=== PATIENT | female | born 1985 | race Hispanic/Latino ===

== ENCOUNTER 2016-10-03 20:43 | Inpatient (IN) | payer OTHER ==
[2016-10-03 20:55] VITALS: BMI 26.6
[2016-10-03] MEDS ORDERED: Sodium Chloride 0.9% 1,000 ML IV STA (21:24)
[2016-10-03 21:42] LABS: ADD MANUAL DIFF? NO
[2016-10-03 21:46] LABS: BASO # 0.01 K/mm3 (0.0-2.0); BASO % 0.1 % (0.0-3.0); EOS % 0.3 % (1.5-5.0); GRAN # 4.53 (1.4-6.5); GRAN % 59.9 % (50.0-68.0); LYMPH # 2.3 (1.2-3.4); LYMPH % 30.6 % (22.0-35.0); MEAN CELL VOLUME 84.7 fL (80.0-105.0); MEAN CORPUSCULAR HEMOGLOBIN 29.2 pg (25.0-35.0); MEAN CORPUSCULAR HGB CONC 34.5 g/dl (31.0-37.0); MEAN PLATELET VOLUME 10.1 fl (7.0-11.0); MONO # 0.7 (0.1-0.6); MONO % 9.1 % (1.0-6.0); PLATELET COUNT 205 10^3/uL (120.0-450.0); RED CELL DISTRIBUTION WIDTH 13.3 % (11.5-14.5); WHITE BLOOD COUNT 7.6 10^3/ul (4.5-11.0)
--- NOTE | 2016-10-03 21:46 | ED PDOC ---
Arrival/HPI - General Historian: Family EM Caveat: Altered Mental Status (confused) - History of Present Illness Time/Duration: 1-3 hours Symptom Onset: Sudden Symptom Course: Unchanged <Patsy Oswald - Last Filed: 10/04/16 01:31> <Senthil Norman - Last Filed: 10/05/16 19:13> - General Chief Complaint: Altered Mental Status Time Seen by Provider: 10/03/16 21:00 - History of Present Illness Narrative History of Present Illness (Text): 10/03/16 21:30 31 year old female with past medical history of depression was brought in to the ED for sudden onset of confusion. History per patient's mother in law, patient visited her this afternoon here at [facility] where she was having an argument with him and all of the sudden patient became confused. Patient was then brought down the [facility] ED for an evaluation. Mother in law reports patient takes multiple medications for her depression and also states that patient has a history of alcohol abuse. Patient was awake and alert, but was not able to answer any questions. Patient's mother Gary was spoken to over the phone reports she takes klonopin at home. Unable to obtain further ROS due to patient' s mental status. (Patsy Oswald) Past Medical History - Provider Review Nursing Documentation Reviewed: Yes - Cardiac Hx Cardiac Disorders: No - Pulmonary Hx Respiratory Disorders: No - Neurological Hx Neurological Disorder: No - HEENT Hx HEENT Disorder: No - Renal Hx Renal Disorder: No - Endocrine/Metabolic Hx Endocrine Disorders: No - Hematological/Oncological Hx Blood Disorders: No - Integumentary Hx Dermatological Disorder: No - Musculoskeletal/Rheumatological Hx Musculoskeletal Disorders: No - Gastrointestinal Hx Gastrointestinal Disorders: No - Genitourinary/Gynecological Hx Genitourinary Disorders: No - Psychiatric Hx Psychophysiologic Disorder: No Hx Substance Use: No - Anesthesia Hx Anesthesia: No <Patsy Oswald - Last Filed: 10/04/16 01:31> Family/Social History - Physician Review Nursing Documentation Reviewed: Yes Family/Social History: No Known Family HX Smoking Status: Never Smoked Hx Alcohol Use: Yes Hx Substance Use: No <Patsy Oswald - Last Filed: 10/04/16 01:31> Allergies/Home Meds <Patsy Oswald - Last Filed: 10/04/16 01:31> <Senthil Norman - Last Filed: 10/05/16 19:13> Allergies/Adverse Reactions: Allergies No Known Allergies Allergy (Verified 10/04/16 12:43) Home Medications: Home Meds Medication Instructions Recorded Confirmed No Known Home Med 10/04/16 10/04/16 Review of Systems - Physician Review All systems were reviewed & negative as marked: Yes - Review of Systems Systems not reviewed;Unavailable: Altered Mental Status (confused) <Patsy Oswald - Last Filed: 10/04/16 01:31> Physical Exam - Physical Exam Physical Exam Limitations: Altered Mental Status (confused) Vital Signs Reviewed: Yes Temperature: Afebrile Blood Pressure: Hypertensive Pulse: Tachycardic Respiratory Rate: Normal Appearance: Positive for: Unkept Pain Distress: None Mental Status: Positive for: Confused Finger Stick Blood Glucose: 104 - Systems Exam Head: Present: Atraumatic, Normocephalic Pupils: Present: Sluggish Conjunctiva: Present: Normal Mouth: Present: Moist Mucous Membranes Pharnyx: No: ERYTHEMA, EXUDATE Neck: Present: Normal Range of Motion Respiratory/Chest: Present: Clear to Auscultation, Good Air Exchange. No: Respiratory Distress, Accessory Muscle Use Cardiovascular: Present: Normal S1, S2, Peripheal Pulses Present, Tachycardic. No: Murmurs Abdomen: Present: Normal Bowel Sounds. No: Tenderness, Distention, Peritoneal Signs Back: Present: Normal Inspection. No: CVA Tenderness Upper Extremity: Present: Normal Inspection, Neurovascularly Intact. No: Cyanosis, Edema Lower Extremity: Present: Normal Inspection, Neurovascularly Intact. No: Edema Neurological: Present: GCS=15, Motor Func Grossly Intact, Normal Sensory Function, Other (No tremors appreciated) Skin: Present: Warm, Dry, Erythematous (facial erythema). No: Rashes Psychiatric: Present: Alert, Other (confused) <OswaldPatsy - Last Filed: 10/04/16 01:31> Vital Signs Temp Pulse Resp BP Pulse Ox 10/04/16 02:54 96 H 18 142/86 96 10/04/16 00:23 107 H 22 135/85 95 10/03/16 22:44 105 H 20 155/71 H 95 10/03/16 20:56 98.9 F 117 H 16 164/95 H 99 10/03/16 20:53 98.8 F 112 H 16 164/95 H 99 Medical Decision Making <Patsy Oswald - Last Filed: 10/04/16 01:31> <Senthil Norman - Last Filed: 10/05/16 19:13> ED Course and Treatment: 10/03/16 21:54 -CBC, CMP -Urine drug screen -Serum alcohol, ammonia -EKG, Cardiac iso -IVF DDx: alcohol withdrawal, substance abuse 10/03/16 23:59 Discussed case with hospitalist attending Dr. Crain, will come assess the patient. (Patsy Oswald) Case seen and evaluated with resident. Agree with HPI, clinical findings, plan and treatment. Patient is a 31 year old female who presents to the emergency department for evaluation of altered mental status. Patient supposedly became confused after she got into an argument with her at [facility] who was admitted for alcohol withdrawal. Ordered labs, urine drug screen, alcohol level, ammonia, EKG , and cardiac enzymes. Case discussed with who agrees with the plan to admit patient to [facility]. Accepts patient under hospitalist service. (Senthil Norman) - Lab Interpretations Lab Results: 10/03/16 21:06 10/03/16 21:06 Lab Results 10/04/16 00:30: Urine Color Yellow, Urine Appearance Clear, Urine pH 6.0, Ur Specific Sandborn 1.010, Urine Protein Negative, Urine Glucose (UA) Negative, Urine Ketones 40 H, Urine Blood Trace-lysed H, Urine Nitrate Negative, Urine Bilirubin Small H, Urine Urobilinogen 0.2, Ur Leukocyte Esterase Negative, Urine RBC 0 - 2, Urine WBC 1 - 3, Ur Epithelial Cells 1 - 3, Urine Bacteria Few 10/04/16 00:00: Free T4 1.38, TSH 3rd Generation 2.50, Hepatitis A IgM Ab Negative, Hep Bs Antigen Negative, Hep B Core IgM Ab Negative, Hepatitis C Antibody Negative 10/03/16 23:01: Ammonia < 9 L 10/03/16 21:34: Urine Opiates Screen Negative, Urine Methadone Screen Negative, Ur Barbiturates Screen Negative, Ur Phencyclidine Scrn Negative, Ur Amphetamines Screen Negative, U Benzodiazepines Scrn Negative, U Oth Cocaine Metabols Negative, U Cannabinoids Screen Negative 10/03/16 21:06: WBC 7.6, RBC 4.72, Hgb 13.8, Hct 40.0, MCV 84.7, MCH 29.2, MCHC 34.5, RDW 13.3, Plt Count 205, MPV 10.1, Gran % 59.9, Lymph % (Auto) 30.6, Whitfield % (Auto) 9.1 H, Eos % (Auto) 0.3 L, Baso % (Auto) 0.1, Gran # 4.53, Lymph # 2.3 , Whitfield # 0.7 H, Eos # 0.0, Baso # 0.01, Sodium 135, Potassium 3.4 L, Chloride 96 L, Carbon Dioxide 22, Anion Gap 20, BUN 7, Creatinine 0.7, Est GFR ( Amer) > 60, Est GFR (Non-Af Amer) > 60, Random Glucose 105, Calcium 9.9, Total Bilirubin 1.5 H, AST 130 H, ALT 204 H, Alkaline Phosphatase 84, Lactate Dehydrogenase 607, Total Creatine Kinase 184, Troponin I < 0.01, Total Protein 8.9 H, Albumin 4.8, Globulin 4.1, Albumin/Globulin Ratio 1.2, Alcohol, Quantitative < 10 - RAD Interpretation Radiology Orders: 10/03/16 22:04 HEAD W/O CONTRAST [CT] Stat - Medication Orders Current Medication Orders: Clonidine HCl (Catapres) 0.1 mg PO Q8H PRN PRN Reason: Diastolic blood pressure Folic Acid (Folic Acid) 1 mg PO DAILY [facility] Lorazepam (Ativan) 2 mg IVP Q6 [facility] PRN Reason: Protocol Last Admin: 10/05/16 18:09 Dose: 2 MG Behavioural Document 10/05/16 18:09 [facility] (Rec: 10/05/16 18:09 [id number]) Maintenance Maintenance Dose Yes Nonmedicinal Nonmedicinal Interventions Redirect Behavior Behavior for Medication: Anxiety IVP Administration Document 10/05/16 18:09 [facility] (Rec: 10/05/16 18:09 [id number]) Charges for Administration # of IVP Administrations 1 Multivitamins/Minerals (Therapeutic-M Tab) 1 tab PO DAILY [facility] Pantoprazole Sodium (Protonix Ec Tab) 40 mg PO ACB [facility] Last Admin: 10/05/16 08:25 Dose: 40 MG Risperidone (Risperdal Tab) 0.5 mg PO DAILY [facility] PRN Reason: Protocol Last Admin: 10/05/16 09:28 Dose: 0.5 MG Behavioural Document 10/05/16 09:28 [facility] (Rec: 10/05/16 09:29 [facility]-[id number]) Maintenance Maintenance Dose Yes Nonmedicinal Nonmedicinal Interventions Redirect Behavior Behavior for Medication: Anxiety Re-Assess: Reassess Psych Meds Document 10/05/16 10:28 [facility] (Rec: 10/05/16 12:35 [facility][id number]) Reassess Psych Med Effective Risperidone (Risperdal Tab) 0.5 mg PO HS [facility] PRN Reason: Protocol Last Admin: 10/04/16 21:11 Dose: 0.5 MG Behavioural Document 10/04/16 21:11 BK (Rec: 10/04/16 21:11 BK [id number]) Maintenance Maintenance Dose No Nonmedicinal Nonmedicinal Interventions Redirect Behavior Behavior for Medication: Hallucinations/paranoid/ delusions/extreme fear Re-Assess: Reassess Psych Meds Document 10/04/16 22:11 BK (Rec: 10/05/16 00:14 BK [id number]) Reassess Psych Med Effective Thiamine HCl (Vitamin B1 Tab) 100 mg PO DAILY [facility] Discontinued Medications Chlordiazepoxide (Librium) 25 mg PO STAT STA PRN Reason: Protocol Stop: 10/03/16 23:23 Last Admin: 10/04/16 00:23 Dose: 25 MG Behavioural Document 10/04/16 00:23 SB (Rec: 10/04/16 00:23 SB [facility]-[id number]) Maintenance Maintenance Dose No Nonmedicinal Nonmedicinal Interventions Redirect Therapeutic Communication Behavior Behavior for Medication: Anxiety Chlordiazepoxide (Librium) 25 mg PO Q4H PRN PRN Reason: Withdrawl Last Admin: 10/04/16 05:19 Dose: 25 MG Behavioural Document 10/04/16 05:19 KT (Rec: 10/04/16 05:19 KT [id number]) Nonmedicinal Nonmedicinal Interventions Redirect Therapeutic Communication Give food/fluids See nurse's notes Behavior Behavior for Medication: Anxiety Hallucinations/paranoid/ delusions/extreme fear Pulling IV lines/tubes/ catheter Folic Acid (Folic Acid) 1 mg PO DAILY [facility] Last Admin: 10/04/16 10:52 Dose: Sodium Chloride (Sodium Chloride 0.9%) 1,000 mls @ 999 mls/hr IV .Q1H1M STA Stop: 10/03/16 22:24 Last Admin: 10/03/16 21:30 Dose: 999 MLS/HR eMAR Start Stop Document 10/03/16 21:30 SB (Rec: 10/03/16 21:31 [id number] Intravenous Solution Start Date 10/03/16 Start Time 21:31 End Date 10/03/16 Folic Acid 1 mg/ Thiamine HCl 100 mg/ Multivitamins/Vitamin C 10 ml/ Dextrose 1 ,011.2 mls @ 100 mls/hr IV .Q10H7M TERRANCE Stop: 10/04/16 10:36 Last Admin: 10/04/16 02:04 Dose: 100 MLS/HR eMAR Start Stop Document 10/04/16 02:04 JMR (Rec: 10/04/16 02:04 JMR [id number]) Intravenous Solution Start Date 10/04/16 Start Time 02:04 Potassium Chloride (Potassium Chloride 20 Meq/100 Ml) 100 mls @ 50 mls/hr IVPB Q2H [facility] Stop: 10/04/16 07:29 Last Admin: 10/04/16 05:45 Dose: 50 MLS/HR eMAR Start Stop Document 10/04/16 05:45 KT (Rec: 10/04/16 06:13 KT [id number]) Intravenous Solution Start Date 10/04/16 Start Time 05:50 End Date 10/04/16 End time 07:50 Total Infusion Time 120 Folic Acid 1 mg/ Thiamine HCl 100 mg/ Multivitamins/Vitamin C 10 ml/ Dextrose 1 ,011.2 mls @ 100 mls/hr IV .Q10H7M TERRANCE Stop: 10/05/16 16:20 Last Admin: 10/05/16 09:38 Dose: 100 MLS/HR eMAR Start Stop Document 10/05/16 09:38 GLI (Rec: 10/05/16 09:38 [email or web address]) Intravenous Solution Start Date 10/05/16 Start Time 09:38 End Date 10/05/16 Lorazepam (Ativan) 1 mg IVP Q4 [facility] PRN Reason: Protocol Last Admin: 10/05/16 04:32 Dose: Not Given Non-Admin Reason: Patient Asleep Lorazepam (Ativan) 2 mg IVP Q2 PRN; Protocol PRN Reason: Anxiety Lorazepam (Ativan) 0.5 mg IVP Q6H [facility] PRN Reason: Protocol Last Admin: 10/05/16 08:24 Dose: 0.5 MG Behavioural Document 10/05/16 08:24 [facility] (Rec: 10/05/16 08:25 [id number] Maintenance Maintenance Dose Yes Nonmedicinal Nonmedicinal Interventions Redirect Behavior Behavior for Medication: Anxiety IVP Administration Document 10/05/16 08:24 [facility] (Rec: 10/05/16 08:25 [id number] Charges for Administration # of IVP Administrations 1 Re-Assess: Reassess Psych Meds Document 10/05/16 08:54 [facility]I (Rec: 10/05/16 09:31 [id number]) Reassess Psych Med Effective Potassium Chloride (K-Dur 20 Meq Er Tab) 40 meq PO STAT STA Stop: 10/05/16 12:15 Last Admin: 10/05/16 13:01 Dose: 40 MEQ Thiamine HCl (Vitamin B1 Inj) 100 mg IM STAT STA Stop: 10/04/16 00:28 Last Admin: 10/04/16 00:51 Dose: Not Given Non-Admin Reason: Patient Refused <Patsy Oswald - Last Filed: 10/04/16 01:31> - PA / SENIOR DESIGN ENGINEERING SPECIALIST / Resident Statement / has reviewed & agrees with the documentation as recorded. / has examined the patient and agrees with the treatment plan. <Senthil Norman - Last Filed: 10/05/16 19:13> - Scribe Statement Royer García All medical record entries made by the Scribe were at my direction and personally dictated by me. I have reviewed the chart and agree that the record accurately reflects my personal performance of the history, physical exam, medical decision making, and the department course for this patient. I have also personally directed, reviewed, and agree with the discharge instructions and disposition. (Senthil Norman) Disposition/Present on Arrival - Present on Arrival Any Indicators Present on Arrival: No History of DVT/PE: No History of Uncontrolled Diabetes: No Urinary Catheter: No History of Decub. Ulcer: No History Surgical Site Infection Following: None - Disposition Have Diagnosis and Disposition been Completed?: Yes Disposition Time: 01:02 <Patsy Oswald - Last Filed: 10/04/16 01:31> <Senthil Norman - Last Filed: 10/05/16 19:13> - Disposition Diagnosis: Alcohol withdrawal Disposition: HOSPITALIZED Patient Problems: Current Active Problems Problem Status Diagnosed Alcohol withdrawal Acute Condition: STABLE
[2016-10-03 21:59] LABS: ALB/GLOB RATIO 1.2 (1.1-1.8); ALKALINE PHOSPHATASE 84 U/L (38-133); ALT/SGPT 204 U/L (7-56); AST/SGOT 130 U/L (15-39); BILIRUBIN,TOTAL 1.5 mg/dL (0.2-1.3); BLOOD UREA NITROGEN 7 mg/dL (7-21); CALCIUM 9.9 mg/dL (8.4-10.5); CARBON DIOXIDE 22 mmol/L (21-33); CHLORIDE 96 mmol/L (98-107); GFR AFRICAN-AMERICAN > 60; GLUCOSE,RANDOM 105 mg/dL (70-110); POTASSIUM 3.4 mmol/L (3.6-5.0); SODIUM 135 mmol/L (132-148); TOTAL PROTEIN 8.9 g/dL (5.8-8.3)
[2016-10-03 22:12] LABS: TROPONIN I < 0.01 ng/mL
[2016-10-04] MEDS ORDERED: Thiamine 100 mg/ml Inj IM STA (00:27)
[2016-10-04] MEDS ORDERED: Folic Acid 1 MG, Thiamine 100 MG, Multivitamin (MVI) 10 ML in Dextrose 5% In Water 1,00... IV SCH (00:30)
--- NOTE | 2016-10-04 00:35 | CP.PCM.HP ---
<Yahaira Burnett - Last Filed: 10/04/16 00:52> History of Present Illness - History of Present Illness History of Present Illness: This is a 31Y F with PMH depression and alcoholism here for AMS. The patient was visiting her at [facility] who was recently admitted for alcohol withdrawal. The patient and her got into an argument and his mother stated that the patient was not making sense and seemed confused. She was taken down to the ED. Upon interview, patient is not responding appropriately to questioning. She reports that she is at [facility]. She does know her name and age. She either remained silent without eye contact for prolonged periods of time. Despite this, she denies having any CP, SOB, n/v/d, numbness or tingling. History was obtained by mother over the phone. PMH: Depression, alcoholism PSH: None Home meds: Klonipin All: Unknown SH: Drinks daily as per mother Present on Admission - Present on Admission Any Indicators Present on Admission: No Review of Systems - Review of Systems Systems not reviewed;Unavailable: Altered Mental Status, Uncooperative Past Patient History - Past Social History Smoking Status: Never Smoked Alcohol: > 2 Drinks/Day (daily) - CARDIAC Hx Cardiac Disorders: No - PULMONARY Hx Respiratory Disorders: No - NEUROLOGICAL Hx Neurological Disorder: No - HEENT Hx HEENT Problems: No - RENAL Hx Chronic Kidney Disease: No - ENDOCRINE/METABOLIC Hx Endocrine Disorders: No - HEMATOLOGICAL/ONCOLOGICAL Hx Blood Disorders: No - INTEGUMENTARY Hx Dermatological Problems: No - MUSCULOSKELETAL/RHEUMATOLOGICAL Hx Musculoskeletal Disorders: No - GASTROINTESTINAL Hx Gastrointestinal Disorders: No - GENITOURINARY/GYNECOLOGICAL Hx Genitourinary Disorders: No - PSYCHIATRIC Hx Psychophysiologic Disorder: No Hx Substance Use: No - SURGICAL HISTORY Hx Surgeries: No - ANESTHESIA Hx Anesthesia: No Meds Allergies/Adverse Reactions: Allergies Allergy/AdvReac Type Severity Reaction Status Date / Time Unobtainable Allergy Verified 10/03/16 20:55 Physical Exam - Constitutional Appears: No Acute Distress, Confused - Head Exam Head Exam: ATRAUMATIC, NORMAL INSPECTION, NORMOCEPHALIC - Eye Exam Eye Exam: Normal appearance, PERRL Pupil Exam: NORMAL ACCOMODATION - ENT Exam ENT Exam: Mucous Membranes Moist - Neck Exam Neck exam: Positive for: Normal Inspection - Respiratory Exam Respiratory Exam: Clear to Auscultation Bilateral, NORMAL BREATHING PATTERN. absent: Rales, Rhonchi, Wheezes - Cardiovascular Exam Cardiovascular Exam: Tachycardia, REGULAR RHYTHM, +S1, +S2. absent: Gallop, Rubs, Systolic Murmur - GI/Abdominal Exam GI & Abdominal Exam: Normal Bowel Sounds, Soft. absent: Guarding, Mass, Rebound , Rigid, Tenderness - Extremities Exam Extremities exam: Positive for: normal inspection. Negative for: calf tenderness, pedal edema - Neurological Exam Neurological exam: CN II-XII Intact Additional comments: A&O x 2 - Psychiatric Exam Psychiatric exam: Flat Affect - Skin Skin Exam: Dry, Normal Color, Warm Results - Vital Signs Recent Vital Signs: Last Vital Signs Temp 98.9 F 10/03/16 20:56 Pulse 107 H 10/04/16 00:23 Resp 22 10/04/16 00:23 BP 135/85 10/04/16 00:23 Pulse Ox 95 10/04/16 00:23 - Labs Result Diagrams: 10/03/16 21:06 10/03/16 21:06 Labs: Laboratory Results - last 24 hr 10/03/16 10/03/16 10/03/16 21:06 21:34 23:01 WBC 7.6 RBC 4.72 Hgb 13.8 Hct 40.0 MCV 84.7 MCH 29.2 MCHC 34.5 RDW 13.3 Plt Count 205 MPV 10.1 Gran % 59.9 Lymph % (Auto) 30.6 Brown % (Auto) 9.1 H Eos % (Auto) 0.3 L Baso % (Auto) 0.1 Gran # 4.53 Lymph # 2.3 Brown # 0.7 H Eos # 0.0 Baso # 0.01 Sodium 135 Potassium 3.4 L Chloride 96 L Carbon Dioxide 22 Anion Gap 20 BUN 7 Creatinine 0.7 Est GFR ( Amer) > 60 Est GFR (Non-Af Amer) > 60 Random Glucose 105 Calcium 9.9 Total Bilirubin 1.5 H AST 130 H ALT 204 H Alkaline Phosphatase 84 Ammonia < 9 L Lactate Dehydrogenase 607 Total Creatine Kinase 184 Troponin I < 0.01 Total Protein 8.9 H Albumin 4.8 Globulin 4.1 Albumin/Globulin Ratio 1.2 Urine Opiates Screen Negative Urine Methadone Screen Negative Ur Barbiturates Screen Negative Ur Phencyclidine Scrn Negative Ur Amphetamines Screen Negative U Benzodiazepines Scrn Negative U Oth Cocaine Metabols Negative U Cannabinoids Screen Negative Alcohol, Quantitative < 10 Assessment & Plan - Assessment and Plan (Free Text) Assessment: This is a 31y F with PMH of alcoholism and depression here for AMS. Plan: 1. Delirium - Secondary to alcohol withdrawal, will r/o other etiology (most likely psych issue) - UDS negative for drugs or alcohol - Head CT negative - U/A pending - Will check TSH - Librium prn - Banana bag, multivitamin, Thiamine, Folic acid - [facility] protocol - Neuro check - aspiration and seizure precaution 2. Transaminitis - Can be secondary to alcohol - Will check Cholesterol panel - Will check Hep panel 3. Hx of Depression - Will consult Psych GI ppx: Protonix DVT ppx: SCDs Case seen, reviewed and discussed with attending. Nataliya Burnett PGY1 - Date & Time Date: 10/04/16 Time: 00:40 <Pete Crain Q - Last Filed: 10/04/16 04:51> Results - Vital Signs Recent Vital Signs: Last Vital Signs Temp 98.9 F 10/03/16 20:56 Pulse 96 H 10/04/16 02:54 Resp 18 10/04/16 02:54 BP 142/86 10/04/16 02:54 Pulse Ox 96 10/04/16 02:54 - Labs Result Diagrams: 10/03/16 21:06 10/03/16 21:06 Labs: Laboratory Results - last 24 hr 10/04/16 00:48 pCO2 18 L* pO2 166.0 H HCO3 12.8 L ABG pH 7.46 H ABG Total CO2 13.4 L ABG O2 Saturation 98.5 H ABG Base Excess -8.4 L ABG Potassium 2.0 L* Sodium 149.0 H Chloride 126.0 H Glucose 57 L Lactate 0.6 L FiO2 21.0 Arterial Blood Potassium 2.0 L* Attending/Attestation - Attestation I have personally seen and examined this patient.: Yes I have fully participated in the care of the patient.: Yes I have reviewed all pertinent clinical information: Yes Notes (Text): 10/04/16 04:48 I agree with the residents note above with the following additions/exceptions: 31 y/o female with a PMHx Depression and etoh abuse was brought to the ED with alteration in her mentation. The patient does not appear to be toxic or in any acute distress, however appears confused and selectively answers questions which could either be a result of a psychiatric illness or delerium secondary to alcohol withdrawal. She was tachycardic and hypertensive in the ED at times as well, during my examination she was normotensive with a normal heart rate. She will be admitted to further rule out her altered mental status and establish a basline as well as have an evaluation by Psychiatry.
[2016-10-04 00:50] LABS: URINE BILIRUBIN SMALL (NEGATIVE); URINE BLOOD TRACE-LYSED (NEGATIVE); URINE GLUCOSE (UA) NEGATIVE (NEGATIVE); URINE KETONE 40 mg/dL (NEGATIVE); URINE LEUKOCYTE ESTERASE NEGATIVE Leu/uL (NEGATIVE); URINE PROTEIN NEGATIVE mg/dL (<30 mg/dL); URINE UROBILINOGEN 0.2 E.U./dL (<1 E.U./dL)
[2016-10-04 00:52] LABS: ARTERIAL BLOOD GAS HCO3 12.8 mmol/L (21-28); ARTERIAL BLOOD GAS PH 7.46 (7.35-7.45)
[2016-10-04 00:54] LABS: URINE COLOR YELLOW (YELLOW)
[2016-10-04 00:55] LABS: URINE APPEARANCE CLEAR (CLEAR)
[2016-10-04 01:06] LABS: URINE BACTERIA FEW (NEG); URINE RBC 0 - 2 /hpf (0-2)
[2016-10-04 01:25] LABS: FREE T4 1.38 ng/dL (0.78-2.19)
[2016-10-04 01:39] LABS: THYROID STIMULATING HORMONE 2.5 mIU/mL (0.46-4.68)
[2016-10-04] MEDS: Potassium Chloride 20 mEq 100 ML IVPB SCH ×2 (03:52→05:45)
[2016-10-04] MEDS: Pantoprazole 40 mg EC Tab PO SCH (08:15)
--- NOTE | 2016-10-04 08:40 | CT ---
PROCEDURE: CT HEAD WITHOUT CONTRAST. HISTORY: ams COMPARISON: None available. TECHNIQUE: Axial computed tomography images were obtained through the head/brain without intravenous contrast. Radiation dose: Total exam DLP = 725.84 mGy-cm. This CT exam was performed using one or more of the following dose reduction techniques: Automated exposure control, adjustment of the mA and/or kV according to patient size, and/or use of iterative reconstruction technique. FINDINGS: HEMORRHAGE: No intracranial hemorrhage. BRAIN: No mass effect or edema. No atrophy or chronic microvascular ischemic changes. VENTRICLES: Unremarkable. No hydrocephalus. CALVARIUM: Unremarkable. PARANASAL SINUSES: Unremarkable as visualized. No significant inflammatory changes. MASTOID AIR CELLS: Unremarkable as visualized. No inflammatory changes. OTHER FINDINGS: None. IMPRESSION: Normal CT of the Head. No intracranial mass, hemorrhage or evidence of acute infarct.
[2016-10-04] MEDS ORDERED: Multivitamin With Minerals Tab PO SCH (10:00)
--- NOTE | 2016-10-04 10:43 | RAD ---
HISTORY: r/o pna COMPARISON: No prior. FINDINGS: LUNGS: No active pulmonary disease. PLEURA: No significant pleural effusion identified, no pneumothorax apparent. CARDIOVASCULAR: Normal. OSSEOUS STRUCTURES: No significant abnormalities. VISUALIZED UPPER ABDOMEN: Normal. OTHER FINDINGS: None. IMPRESSION: No active disease.
[2016-10-04] MEDS: Folic Acid 1 MG, Thiamine 100 MG, Multivitamin (MVI) 10 ML in Dextrose 5% In Water 1,00... IV SCH ×3 (10:53→23:00)
[2016-10-04 11:20] LABS: BLOOD UREA NITROGEN 4 mg/dL (7-21); CALCIUM 9.7 mg/dL (8.4-10.5); CARBON DIOXIDE 21 mmol/L (21-33); CHLORIDE 103 mmol/L (98-107); GFR AFRICAN-AMERICAN > 60; GLUCOSE,RANDOM 103 mg/dL (70-110); PHOSPHOROUS 2.9 mg/dL (2.5-4.5); POTASSIUM 3.8 mmol/L (3.6-5.0); SODIUM 135 mmol/L (132-148)
--- NOTE | 2016-10-04 11:22 | CARD ---
APPROVED REPORT EKG Measurement Heart [id number] <Conclusion> Sinus tachycardia T wave abnormality, consider inferior ischemia Diffuse NSSTW changes
--- NOTE | 2016-10-04 15:52 | CON ---
DATE: 10/04/2016 The patient is a 31-year-old white female with a history of depression and alcohol dependency who was admitted to the medical floor after she was demonstrating altered mental status while visiting her h marilu, who is also currently hospitalized for alcohol dependency at [facility]. Records indicate that patient was delusional, hallucinating, bizarrely related and unpredictable when she wa s admitted to the medical floor. I met with patient at bedside this morning after reviewing the note s and patient appears to be much improved. She is alert and oriented x 3. She is quite aware of her behavior and symptoms yesterday, indicating that she remembered that she believed many strange thing s and she was quite embarrassed by her presentation yesterday. The patient indicates that she was pa ranoid about people trying to harm her and that she was "part of a sting mission" and she also believ ed that she was a drug addict and that she was also hallucinating, hearing voices and seeing things t hat she knew were imaginary. At this time, patient does not believe or have any delusions, indicatin g she is much better and she does not have any hallucinations either. Her coherency has also improve d as well as her focus and relevant responses. Regarding the etiology of her presentation, she does admit that she has an alcohol dependency, the timing of which she indicates that she realized she was dependent on alcohol since at least 01/2015 and she continues to drink daily and her last drink was a pproximately 2 days prior to admission, according to patient, which would be consistent with alcohol withdrawal DTs. The patient reports that she drinks a lot of wine and vodka on a daily basis; lilliana jackson, is unable to quantify the amount. She has never been in rehab or detox, but she has been in treat ment and would like to be in treatment again. Regarding mood symptoms, she denies depression, she de nies any elevation in mood and she appears quite calm during my meeting. Her insight and judgment ar e considered to be quite improved as well as her impulse control. PSYCHIATRIC HISTORY: The patient denies any inpatient psychiatric hospitalizations. She denies any suicide attempts. She did seek dual treatment for her mood and alcohol dependency with in [facility] where she was treated with Lexapro, which was eventually tapered off. Thi s occurred in 01/2015. The patient eventually relapsed and started drinking wine and vodka on a daily basis. As mentioned, she has no history of suicide attempts and she is not currently in any psychia tric treatment. SOCIAL HISTORY: The patient was born in [facility]. Currently and has been dependent on alco hol for at least 2-3 years. She denies any alcohol withdrawal seizures. She denies any history of r ehabs or detoxes. She denies any drug use either. VITAL SIGNS: Within normal limits at 8 a.m. this morning. LABORATORIES: Reviewed by this provider. MEDICATIONS: Also reviewed and the current psychiatric medications include Ativan 2 mg IV q. 2 p.r.n . and Ativan 1 mg IV q. 4 scheduled for alcohol withdrawal. IMPRESSION: Alcohol use disorder, severe, as well as delirium related to alcohol withdrawal. RECOMMENDATIONS: At this time, medical team should continue to treat patient's alcohol dependency an d withdrawal with Ativan as scheduled and taper this medication as tolerated. The patient denies having any mood symptoms at this time; however, she is quite interested in seeking outpatient treatment for her alcohol dependency. I recommend that if she is interested in [facility], patient is given information from adoption social worker about programs that can treat both possi ble mood, anxiety and alcohol dependency. Recommend that social work does meet with patient to [place] de her resources in this regard as patient is interested in pursuing this along with her for her alcohol dependency. In this regard, patient is also interested in possible Vivitrol shot, althou gh on an outpatient basis. There is no indication for any psychiatric medications at this time and ab her defers on this intervention at this time. [facility] as well. It might be also worth exploring options of rehabilitatio n if patient if she is willing to follow up on an inpatient transfer, although this provider does not believe that this might be the case. Regardless, psychiatry will sign off at this time. Please rec onsult p.r.n. if there are any acute changes in patient's presentation and we will be happy to follow up with this patient again. Zdena Lyn MD cc: [id number] TT: 10/04/2016 15:51:27 Confirmation # [id number] Dictation # [id number] en
[2016-10-05 07:29] LABS: ALB/GLOB RATIO 1.2 (1.1-1.8); ALKALINE PHOSPHATASE 69 U/L (38-133); ALT/SGPT 141 U/L (7-56); AST/SGOT 80 U/L (15-39); BILIRUBIN,TOTAL 1.3 mg/dL (0.2-1.3); BLOOD UREA NITROGEN 3 mg/dL (7-21); CALCIUM 9.5 mg/dL (8.4-10.5); CARBON DIOXIDE 27 mmol/L (21-33); CHLORIDE 100 mmol/L (98-107); GFR AFRICAN-AMERICAN > 60; GLUCOSE,RANDOM 102 mg/dL (70-110); POTASSIUM 3.3 mmol/L (3.6-5.0); SODIUM 135 mmol/L (132-148); TOTAL PROTEIN 7.5 g/dL (5.8-8.3)
[2016-10-05 08:07] LABS: HEMATOCRIT 38.9 % (36.0-48.0); MEAN CORPUSCULAR HEMOGLOBIN 29.5 pg (25.0-35.0); MEAN CORPUSCULAR HGB CONC 33.9 g/dl (31.0-37.0); MEAN PLATELET VOLUME 10.8 fl (7.0-11.0); RED CELL DISTRIBUTION WIDTH 13.8 % (11.5-14.5); WHITE BLOOD COUNT 5.3 10^3/ul (4.5-11.0)
[2016-10-05 08:16] LABS: CHOLESTEROL 193 mg/dL (130-200)
[2016-10-05] MEDS: Pantoprazole 40 mg EC Tab PO SCH (08:25)
[2016-10-05] MEDS: Folic Acid 1 MG, Thiamine 100 MG, Multivitamin (MVI) 10 ML in Dextrose 5% In Water 1,00... IV SCH (09:38)
--- NOTE | 2016-10-05 10:41 | CON ---
DATE: 10/05/2016 HISTORY OF PRESENT ILLNESS: The patient is a 31-year-old white female with a history of depression, alcohol dependency who was admitted to the medical floor after she was demonstrating altered mental s tatus for visiting with her who is also being currently hospitalized for alcohol dependency a [facility]. Records indicate that the patient was delusional, hallucinating, paranoid, bizarrely related and unpredictable when she was admitted to the medical floor. When I first met wi th patient yesterday, these symptoms appear to have resolved at least temporarily consistent with his diagnosis of DTs. However, upon reading nursing notes and talking with nursing, it appears the rubina ent had another episode of paranoid delusions and hallucinations yesterday evening. These waxing and waning symptoms are very consistent with the diagnosis of delirium, in this patient. I met with the patient this morning as a followup and she again appears to be coherent, alert and is aware of her delusions and behavior yesterday. She no longer has any thoughts that others are persec uting her or trying to kill her. She is not hallucinating at this time and appears to be in a more l ucid period of her delirium process. The patient was able to give me the correct month, year, locati on, the circumstances of her current hospitalization. I explained that if she is aware that she is b eing treated for alcohol withdrawal and she is having bouts of psychosis associated with her delirium . She is also aware that temporarily started antipsychotic to help prevent these episodes. She is a laughlin that this antipsychotic will be discontinued once she is appropriately, medically stabilized. P resently, her impulse control is good, but it is unpredictable due to be waxing and waning features o f delirium. VITAL SIGNS: Were reviewed this morning. MEDICATIONS: Reviewed and are relevant psychiatric medications include 2 mg of Ativan IV q. 2 p.r.n. anxiety and 0.5 mg IV q. 6 hours scheduled, as well as Risperdal 0.5 mg a.m. and at bedtime. IMPRESSION: Alcohol dependency, severe, as well as alcohol withdrawal delirium tremens. RECOMMENDATIONS: At this time will change the patient's medication order to Ativan 2 mg q. 6 standin g, discontinue 0.5 mg IV q. 6 scheduled and continue with Risperdal 0.5 mg a.m. and at bedtime for pa tient's hallucinations. Psychiatry will continue to follow patient and monitor her progress and sign s and medications as these symptoms are definitely related to DTs and she is not a candidate for ps hiatric inpatient unit, until her medical issues in this regard are resolved. Nonetheless, it is barion ar that patient even during her more lucid moment is not interested in psychiatric hospitalizations; however, we will continue to evaluate patient and discussed this possibility. Nancie Lyn MD cc: [id number] TT: 10/05/2016 10:40:38 Confirmation # [id number] Dictation # [id number] jostin
[2016-10-05] MEDS ORDERED: Potassium Chloride 20 mEq ER Tab PO STA (12:14)
--- NOTE | 2016-10-05 13:06 | CP.PCM.PN ---
<Vicki Fulton - Last Filed: 10/05/16 13:26> Subjective - Date & Time of Evaluation Date of Evaluation: 10/05/16 Time of Evaluation: 08:40 - Subjective Subjective: Pt seen and evaluated at bedside. Pt denies N/V, reports eating. Afebrile overnight. Agitation episode last PM with threatening staff. Pt on 1:1. Objective - Vital Signs/Intake and Output Vital Signs (last 24 hours): Temp Pulse Resp BP Pulse Ox 98.4 F 79 18 108/65 98 10/05/16 06:00 10/05/16 06:00 10/05/16 06:00 10/05/16 06:00 10/05/16 06:00 Intake and Output: 10/05/16 10/05/16 06:59 18:59 Intake Total 2140 Output Total 0 Balance 2140 - Medications Medications: Current Medications Clonidine HCl (Catapres) 0.1 mg PO Q8H PRN PRN Reason: Diastolic blood pressure Folic Acid 1 mg/ Thiamine HCl 100 mg/ Multivitamins/Vitamin C 10 ml/ Dextrose 1 ,011.2 mls @ 100 mls/hr IV .Q10H7M TERRANCE Stop: 10/05/16 16:20 Last Admin: 10/05/16 09:38 Dose: 100 mls/hr Lorazepam (Ativan) 2 mg IVP Q6 TERRANCE PRN Reason: Protocol Last Admin: 10/05/16 13:00 Dose: 2 mg Pantoprazole Sodium (Protonix Ec Tab) 40 mg PO ACB TERRANCE Last Admin: 10/05/16 08:25 Dose: 40 mg Risperidone (Risperdal Tab) 0.5 mg PO DAILY TERRANCE PRN Reason: Protocol Last Admin: 10/05/16 09:28 Dose: 0.5 mg Risperidone (Risperdal Tab) 0.5 mg PO HS TERRANCE PRN Reason: Protocol Last Admin: 10/04/16 21:11 Dose: 0.5 mg - Labs Labs: 10/05/16 07:53 10/05/16 06:30 - Additional Findings Additional findings: - Constitutional Appears: No Acute Distress, Confused - Head Exam Head Exam: ATRAUMATIC, NORMAL INSPECTION, NORMOCEPHALIC - Eye Exam Eye Exam: Normal appearance, PERRL Pupil Exam: NORMAL ACCOMODATION - ENT Exam ENT Exam: Mucous Membranes Moist, normal external ear exam - Respiratory Exam Respiratory Exam: Clear to Auscultation Bilateral, NORMAL BREATHING PATTERN. absent: Rales, Rhonchi, Wheezes - Cardiovascular Exam Cardiovascular Exam: Tachycardia, REGULAR RHYTHM, +S1, +S2. absent: Gallop, Rubs, Systolic Murmur - GI/Abdominal Exam GI & Abdominal Exam: Normal Bowel Sounds, Soft, non-distended absent: Guarding , Mass, Rebound, Rigid, Tenderness - Extremities Exam Extremities exam: Positive for: normal inspection. Negative for: calf tenderness, pedal edema - Neurological Exam Neurological exam: awake, alert. Upper extremities slightly tremulous. - Psychiatric Exam Psychiatric exam: Flat Affect - Skin Skin Exam: Dry, Normal Color, Warm Assessment and Plan - Assessment and Plan (Free Text) Plan: This is a 31y F with PMH of alcoholism and depression here for AMS. Plan: 1. Delirium - Secondary to alcohol withdrawal, will r/o other etiology (most likely psych issue) - UDS negative for drugs or alcohol - Head CT negative - U/A with high ketones - TSH wnl - ativan [facility] - multivitamin, Thiamine, Folic acid - [facility] protocol - Neuro check - aspiration and seizure precaution 2. Transaminitis -high but downtrending - Can be secondary to alcohol - Will check Cholesterol panel, except for high HDL - Hep panel, negative 3. Hx of Depression - consulted Psych, help appreciated - as per recs: risperdal .5 QAM and HS on board, ativan [facility] GI ppx: Protonix DVT ppx: pt is walking Case seen, reviewed and discussed with attending. Nataliya Fulton PGY1 <Dm Alberts B - Last Filed: 10/05/16 17:04> Objective - Vital Signs/Intake and Output Vital Signs (last 24 hours): Temp Pulse Resp BP Pulse Ox 98.4 F 118 H 18 108/65 98 10/05/16 06:00 10/05/16 14:00 10/05/16 06:00 10/05/16 06:00 10/05/16 06:00 Intake and Output: 10/05/16 10/05/16 06:59 18:59 Intake Total 2140 Output Total 0 Balance 2140 - Medications Medications: Current Medications Clonidine HCl (Catapres) 0.1 mg PO Q8H PRN PRN Reason: Diastolic blood pressure Folic Acid (Folic Acid) 1 mg PO DAILY TERRANCE Lorazepam (Ativan) 2 mg IVP Q6 TERRANCE PRN Reason: Protocol Last Admin: 10/05/16 13:00 Dose: 2 mg Multivitamins/Minerals (Therapeutic-M Tab) 1 tab PO DAILY TERRANCE Pantoprazole Sodium (Protonix Ec Tab) 40 mg PO ACB TERRANCE Last Admin: 10/05/16 08:25 Dose: 40 mg Risperidone (Risperdal Tab) 0.5 mg PO DAILY TERRANCE PRN Reason: Protocol Last Admin: 10/05/16 09:28 Dose: 0.5 mg Risperidone (Risperdal Tab) 0.5 mg PO HS TERRANCE PRN Reason: Protocol Last Admin: 10/04/16 21:11 Dose: 0.5 mg Thiamine HCl (Vitamin B1 Tab) 100 mg PO DAILY TERRANCE - Labs Labs: 10/05/16 07:53 10/05/16 06:30 Attending/Attestation - Attestation I have personally seen and examined this patient.: Yes I have fully participated in the care of the patient.: Yes I have reviewed all pertinent clinical information, including history, physical exam and plan: Yes Notes (Text): I have seen and examined patient at bedside. This is 31 year old female with history of alcohol abuse and depression who got admitted for AMS secondary to alcohol withdrawal syndrome. CT head and UDS is negative. Last night patient had an episode of agitation. 1:1 was started. Psych consult appreciated. Continue Risperidol and ativan. She also has transaminitis most likely secondary to alcohol. Hep panel is negative. Will order for hepatic ultrasound. Upon discharge patient will follow up with PMD of choice. Dr Dm Alberts
[2016-10-06] MEDS: Folic Acid 1 MG, Thiamine 100 MG, Multivitamin (MVI) 10 ML in Dextrose 5% In Water 1,00... IV SCH (06:19)
[2016-10-06] MEDS: Pantoprazole 40 mg EC Tab PO SCH (08:14)
[2016-10-06 08:30] LABS: ALB/GLOB RATIO 1.1 (1.1-1.8); ALKALINE PHOSPHATASE 65 U/L (38-133); ALT/SGPT 129 U/L (7-56); AST/SGOT 72 U/L (15-39); BILIRUBIN,TOTAL 1.1 mg/dL (0.2-1.3); BLOOD UREA NITROGEN 8 mg/dL (7-21); CALCIUM 9.4 mg/dL (8.4-10.5); CARBON DIOXIDE 25 mmol/L (21-33); CHLORIDE 103 mmol/L (98-107); GFR AFRICAN-AMERICAN > 60; GLUCOSE,RANDOM 84 mg/dL (70-110); POTASSIUM 3.5 mmol/L (3.6-5.0); SODIUM 137 mmol/L (132-148); TOTAL PROTEIN 7.3 g/dL (5.8-8.3)
[2016-10-06] MEDS: Multivitamin With Minerals Tab PO SCH (09:43)
--- NOTE | 2016-10-06 10:01 | CON ---
DATE: 10/06/2016 The patient is a 31-year-old white female with a history of depression and alcohol dependency who is being followed on the medical floor by psychiatry for symptoms of DTs. The patient had had 2 nights in which her mental status was significantly altered in which she was having delusions, paranoia, stephan tation and fear. During this time, she is being treated with Ativan and Risperdal was recently begun for her yesterday at 0.5 mg twice daily. This provider reviewed the records and determined that Ati van dosing was too low for patient's history of alcohol dependency and increased it to 2 mg q. 6 hour s with hold parameters of low blood pressure and sedation. I met with patient at bedside and reviewe d recent nursing notes and it indicates that patient has not had recurrence of her hallucinations and delusions in the past since changes to her medications were made approximately 24 hours ago. She is tolerating Ativan and Risperdal very well and she is quite coherent and alert and oriented to circum stances, location, month and year. She is not demonstrating any paranoia. She is aware of her delus ions; however, she does not believe in them anymore. Thought process is logical and goal directed. She still reports motivation to follow up on aftercare recommendations for treatment program fo r substance abuse and she is open to dual treatment program to address the substance abuse and possib le underlying psychiatric symptoms. Please note that patient does deny any depression or excess anxi ety at this time and she defers on any psychiatric management in this regard. She also defers on tra nsfer to the psychiatric inpatient unit as well. She does not appear to be actively hallucinating an d as noted above, no delusions were elicited. She does not appear paranoid and hypervigilance was no t observed. The patient has been in control . The patient is tolerating her current medication s very well and does report some sedation associated with the Ativan. Her insight and judgment as we ll as impulse control are improving. Vital signs and labs were reviewed this morning. RELEVANT PSYCHIATRIC MEDICATIONS: Include Ativan 2 mg IV q. 6 scheduled, Risperdal 0.5 mg p.o. a.m. and at bedtime. IMPRESSION: Alcohol dependency with associated alcohol withdrawal delirium tremens as well as histor y of depression. RECOMMENDATIONS: 1. At this time, patient does appear to be improving. We will continue with Ativan taper, which was decreased to 2 mg IV q. 8 scheduled and with hold parameters of sedation as well as systolic blood p ressure less than 100. 2. We will decrease Risperdal to just 0.5 mg p.o. at bedtime 1 dose and then discontinue. This medi cation was only started to help with patient's hallucinations, paranoid delusions on the unit while s he was going through alcohol withdrawal. 3. Psychiatry will continue to follow up with patient to ensure resolution of her psychotic symptoms . 4. The patient is psychiatrically cleared. There are no pending psychiatric issues except for those related medically to her alcohol withdrawal. However, at this time, since patient suffering f rom delirium, I do not recommend discharge unless patient demonstrated consistent improvement of her psychotic symptoms as she has only had resolution of these symptoms for 1 night. At this time, I wou ld recommend the continuation of 1:1 and observe patient carefully near nursing station. Nancie Lyn MD cc: [id number] TT: 10/06/2016 10:00:29 Confirmation # [id number] Dictation # [id number] en
[2016-10-06 10:43] LABS: HEMATOCRIT 38.1 % (36.0-48.0); MEAN CELL VOLUME 88.2 fL (80.0-105.0); MEAN CORPUSCULAR HEMOGLOBIN 29.4 pg (25.0-35.0); MEAN CORPUSCULAR HGB CONC 33.3 g/dl (31.0-37.0); MEAN PLATELET VOLUME 10.8 fl (7.0-11.0); RED CELL DISTRIBUTION WIDTH 13.9 % (11.5-14.5); WHITE BLOOD COUNT 5.8 10^3/ul (4.5-11.0)
[2016-10-06] MEDS ORDERED: Potassium Chloride 20 mEq ER Tab PO ONE (11:39)
--- NOTE | 2016-10-06 12:02 | CP.PCM.PN ---
<Nichol Christianson - Last Filed: 10/06/16 12:17> Subjective - Date & Time of Evaluation Date of Evaluation: 10/06/16 Time of Evaluation: 11:58 - Subjective Subjective: HOSPITALIST PROGRESS NOTE Patient is seen and examined at bedside. No acute events overnight. Patient denies having any anxiety, diaphoresis, N/V, tremors or hallucinations. She denies having any abd pain, CP, SOB. Objective - Vital Signs/Intake and Output Vital Signs (last 24 hours): Temp Pulse Resp BP Pulse Ox 98.5 F 93 H 20 113/71 98 10/06/16 11:57 10/06/16 11:57 10/06/16 11:57 10/06/16 11:57 10/06/16 06:00 Intake and Output: 10/06/16 10/06/16 06:59 18:59 Intake Total 400 Balance 400 - Medications Medications: Current Medications Clonidine HCl (Catapres) 0.1 mg PO Q8H PRN PRN Reason: Diastolic blood pressure Folic Acid (Folic Acid) 1 mg PO DAILY [facility] Last Admin: 10/06/16 09:43 Dose: 1 mg Lorazepam (Ativan) 2 mg IVP Q8 RICCARDO PRN Reason: Protocol Last Admin: 10/06/16 05:25 Dose: 2 mg Multivitamins/Minerals (Therapeutic-M Tab) 1 tab PO DAILY [facility] Last Admin: 10/06/16 09:43 Dose: 1 tab Pantoprazole Sodium (Protonix Ec Tab) 40 mg PO ACB [facility] Last Admin: 10/06/16 08:14 Dose: 40 mg Risperidone (Risperdal Tab) 0.5 mg PO HS [facility] PRN Reason: Protocol Last Admin: 10/05/16 22:04 Dose: 0.5 mg Thiamine HCl (Vitamin B1 Tab) 100 mg PO DAILY [facility] Last Admin: 10/06/16 09:43 Dose: 100 mg - Labs Labs: 10/06/16 10:37 10/06/16 07:22 - Constitutional Appears: Non-toxic, No Acute Distress - Head Exam Head Exam: ATRAUMATIC - ENT Exam ENT Exam: Mucous Membranes Moist - Respiratory Exam Respiratory Exam: Clear to Ausculation Bilateral. absent: Rales, Rhonchi, Wheezes - Cardiovascular Exam Cardiovascular Exam: REGULAR RHYTHM, RRR, +S1, +S2 - GI/Abdominal Exam GI & Abdominal Exam: Soft, Normal Bowel Sounds. absent: Distended, Firm, Guarding, Rigid, Tenderness - Extremities Exam Extremities Exam: Full ROM. absent: Pedal Edema, Tenderness - Neurological Exam Neurological Exam: Alert, Awake, Oriented x3 - Psychiatric Exam Psychiatric exam: Normal Affect, Normal Mood - Skin Skin Exam: Dry, Intact, Normal Color, Warm Assessment and Plan - Assessment and Plan (Free Text) Assessment: 31y F with PMH of alcoholism and depression here for AMS. A&O x 3 today Plan: 1. Delirium - Secondary to alcohol withdrawal, will r/o other etiology (most likely psych issue) - UDS negative for drugs or alcohol - Head CT negative - U/A with high ketones - TSH wnl - ativan riccardo 2 q8 riccardo. Adjusting per psych recs. Consider tapering down dose to only PRN as patient's CIWA score is 0. - multivitamin, Thiamine, Folic acid - [facility] protocol - Neuro check - aspiration and seizure precaution 2. Transaminitis - Pending abd US today - high but downtrending - Can be secondary to alcohol - Cholesterol panel WNL - Hep panel, negative 3. Hx of Depression - consulted Psych, help appreciated - as per recs: risperdal .5mg PO HS on board, ativan riccardo GI ppx: Protonix DVT ppx: pt is walking Case seen, reviewed and discussed with attending, Dr. Alberts. <Dm Alberts - Last Filed: 10/06/16 12:51> Objective - Vital Signs/Intake and Output Vital Signs (last 24 hours): Temp Pulse Resp BP Pulse Ox 98.5 F 93 H 20 113/71 98 10/06/16 11:57 10/06/16 11:57 10/06/16 11:57 10/06/16 11:57 10/06/16 06:00 Intake and Output: 10/06/16 10/06/16 06:59 18:59 Intake Total 400 Balance 400 - Medications Medications: Current Medications Clonidine HCl (Catapres) 0.1 mg PO Q8H PRN PRN Reason: Diastolic blood pressure Folic Acid (Folic Acid) 1 mg PO DAILY RICCARDO Last Admin: 10/06/16 09:43 Dose: 1 mg Lorazepam (Ativan) 2 mg IVP Q8 RICCARDO PRN Reason: Protocol Last Admin: 10/06/16 05:25 Dose: 2 mg Multivitamins/Minerals (Therapeutic-M Tab) 1 tab PO DAILY RICCARDO Last Admin: 10/06/16 09:43 Dose: 1 tab Pantoprazole Sodium (Protonix Ec Tab) 40 mg PO ACB RICCARDO Last Admin: 10/06/16 08:14 Dose: 40 mg Risperidone (Risperdal Tab) 0.5 mg PO HS RICCARDO PRN Reason: Protocol Last Admin: 10/05/16 22:04 Dose: 0.5 mg Thiamine HCl (Vitamin B1 Tab) 100 mg PO DAILY RICCARDO Last Admin: 10/06/16 09:43 Dose: 100 mg - Labs Labs: 10/06/16 10:37 10/06/16 07:22 Attending/Attestation - Attestation I have personally seen and examined this patient.: Yes I have fully participated in the care of the patient.: Yes I have reviewed all pertinent clinical information, including history, physical exam and plan: Yes Notes (Text): I have seen and examined patient at bedside. This is 31 year old female with history of alcohol abuse and depression who got admitted for AMS secondary to alcohol withdrawal syndrome. CT head and UDS is negative. Last night patient slept throut the night and had no periods of agitation, paranoia or fear. Psych re evaluated her and recommended to continue 1:1 and taper risperidol and ativan. She also has transaminitis most likely secondary to alcohol. Hep panel is negative. Hepatic ultrasound is pending. Upon discharge patient will follow up with Dr Hooper. Dr Dm Alberts
--- NOTE | 2016-10-06 15:08 | CP.PCM.PN ---
Subjective - Date & Time of Evaluation Date of Evaluation: 10/06/16 Time of Evaluation: 15:07 - Subjective Subjective: pt needs angiocath insertion. Objective - Vital Signs/Intake and Output Vital Signs (last 24 hours): Temp Pulse Resp BP Pulse Ox 98.5 F 93 H 20 113/71 98 10/06/16 11:57 10/06/16 11:57 10/06/16 11:57 10/06/16 11:57 10/06/16 06:00 Intake and Output: 10/06/16 10/06/16 06:59 18:59 Intake Total 400 Balance 400 - Medications Medications: Current Medications Clonidine HCl (Catapres) 0.1 mg PO Q8H PRN PRN Reason: Diastolic blood pressure Folic Acid (Folic Acid) 1 mg PO DAILY [facility] Last Admin: 10/06/16 09:43 Dose: 1 mg Lorazepam (Ativan) 2 mg IVP Q8 TERRANCE PRN Reason: Protocol Last Admin: 10/06/16 05:25 Dose: 2 mg Multivitamins/Minerals (Therapeutic-M Tab) 1 tab PO DAILY TERRANCE Last Admin: 10/06/16 09:43 Dose: 1 tab Pantoprazole Sodium (Protonix Ec Tab) 40 mg PO ACB TERRANCE Last Admin: 10/06/16 08:14 Dose: 40 mg Risperidone (Risperdal Tab) 0.5 mg PO HS TERRANCE PRN Reason: Protocol Last Admin: 10/05/16 22:04 Dose: 0.5 mg Thiamine HCl (Vitamin B1 Tab) 100 mg PO DAILY TERRANCE Last Admin: 10/06/16 09:43 Dose: 100 mg - Labs Labs: 10/06/16 10:37 10/06/16 07:22 Assessment and Plan - Assessment and Plan (Free Text) Assessment: 24 guage angiocath inserted in rt wrist area.
--- NOTE | 2016-10-06 15:33 | US ---
Hepatic ultrasound dated 10/06/2016. History: Elevated LFTs. Sonographic evaluation limited to the right upper quadrant performed. No prior. Findings: The liver exhibits normal size measuring 15.2 cm in CC dimension. Liver exhibits increased echotexture suggesting fatty infiltration however other infiltrative hepatocellular disease process not excluded. Liver demonstrates smooth contour. No ascites identified. Portal vein demonstrates hepatopetal flow. Gallbladder is physiologically distended. No evidence of intraluminal gallbladder calculi. Minimal prominence of the gallbladder wall nonspecific. No pericholecystic fluid collections or sonographic Sullivan sign. Common bile duct measures 3.1 mm. Visualized portions of the pancreas grossly unremarkable so far as can be seen. Note that overlying bowel gas and body habitus partially obscure the posterior body and pancreatic tail limiting evaluation. Right kidney exhibits normal size without mass collection or calcification. Impression: Findings consistent with fatty infiltration however other infiltrative hepatocellular disease process cannot be completely excluded. No evidence cholelithiasis.
[2016-10-07 00:28] VITALS: RESP 20
[2016-10-07 06:57] VITALS: O2SAT 99
--- NOTE | 2016-10-07 06:57 | CP.PCM.PN ---
Subjective - Date & Time of Evaluation Date of Evaluation: 10/07/16 Objective - Vital Signs/Intake and Output Vital Signs (last 24 hours): Temp Pulse Resp BP Pulse Ox 97.9 F 88 20 141/93 H 99 10/07/16 06:00 10/07/16 06:00 10/07/16 06:00 10/07/16 06:00 10/07/16 06:00 Intake and Output: 10/06/16 10/07/16 18:59 06:59 Intake Total 120 Output Total 0 Balance 120 - Medications Medications: Current Medications Clonidine HCl (Catapres) 0.1 mg PO Q8H PRN PRN Reason: Diastolic blood pressure Folic Acid (Folic Acid) 1 mg PO DAILY [facility] Last Admin: 10/06/16 09:43 Dose: 1 mg Lorazepam (Ativan) 0.5 mg IVP Q8 [facility] PRN Reason: Protocol Last Admin: 10/07/16 06:41 Dose: Not Given Multivitamins/Minerals (Therapeutic-M Tab) 1 tab PO DAILY [facility] Last Admin: 10/06/16 09:43 Dose: 1 tab Pantoprazole Sodium (Protonix Ec Tab) 40 mg PO ACB TERRANCE Last Admin: 10/06/16 08:14 Dose: 40 mg Thiamine HCl (Vitamin B1 Tab) 100 mg PO DAILY [facility] Last Admin: 10/06/16 09:43 Dose: 100 mg - Labs Labs: 10/06/16 10:37 10/06/16 07:22
[2016-10-07 07:04] LABS: HEMATOCRIT 36.3 % (36.0-48.0); MEAN CELL VOLUME 87.9 fL (80.0-105.0); MEAN CORPUSCULAR HEMOGLOBIN 28.8 pg (25.0-35.0); MEAN CORPUSCULAR HGB CONC 32.8 g/dl (31.0-37.0); MEAN PLATELET VOLUME 10.2 fl (7.0-11.0); RED CELL DISTRIBUTION WIDTH 14.1 % (11.5-14.5); WHITE BLOOD COUNT 6.4 10^3/ul (4.5-11.0)
[2016-10-07 07:17] LABS: ALB/GLOB RATIO 1.2 (1.1-1.8); ALKALINE PHOSPHATASE 57 U/L (38-133); ALT/SGPT 124 U/L (7-56); AST/SGOT 71 U/L (15-39); BILIRUBIN,TOTAL 0.7 mg/dL (0.2-1.3); BLOOD UREA NITROGEN 13 mg/dL (7-21); CALCIUM 8.9 mg/dL (8.4-10.5); CARBON DIOXIDE 23 mmol/L (21-33); CHLORIDE 101 mmol/L (98-107); GFR AFRICAN-AMERICAN > 60; GLUCOSE,RANDOM 103 mg/dL (70-110); POTASSIUM 3.5 mmol/L (3.6-5.0); SODIUM 133 mmol/L (132-148); TOTAL PROTEIN 7.1 g/dL (5.8-8.3)
[2016-10-07] MEDS ORDERED: Potassium Chloride 20 mEq ER Tab PO ONE (07:58)
[2016-10-07] MEDS: Pantoprazole 40 mg EC Tab PO SCH (08:35)
[2016-10-07] MEDS: Multivitamin With Minerals Tab PO SCH (09:23)
[2016-10-07 13:28] VITALS: BP 120/86; PULSE 90; TEMP 98.2
--- NOTE | 2016-10-07 14:34 | CON ---
DATE: 10/07/2016 The patient is a 31-year-old white female with a history of depression and alcohol dependency who is being followed on the medical floor by psychiatry for symptoms of DTs. The patient spent initial 2 n ights in the hospital for agitation. Paranoia, delusions and confusion have improved and showed cons istent improvement in the last 2 days without any recurrence of overt psychosis. During this time, A tivan has been decreased and the patient's mental status has improved, notably so. She is coherent. She continues to deny any depression or any major psychiatric issues regarding homicidal thoughts, s uicidal thoughts and she is responsive to relevant questioning. The patient's appearance is much susan ghter and more alert, focus is improving and she reports having motivation and hopefulness. The patient reports motivation to follow up with aftercare recommendations regarding her substance ab use and would like the social service assistant to speak with her in that regard. Consistently, the patient gillespie s denied any desire to go to the psychiatric unit for further treatment of any mood issues as she fee ls like she has been more focused on her problems with alcohol use. Insight and judgment as well as impulse control are improving. Vital signs and labs were reviewed this morning. ASSESSMENT: Alcohol dependency associated with alcohol withdrawal delirium tremens as well as histor y of depression, noncontributory. RECOMMENDATIONS: 1. At this time, we will have the medical team treat patient for her DTs as per medical protocol. 2 . Would recommend a social service assistant speak with the patient before discharge to discuss outpatient opti ons, preferably for a dual program to address patient's substance use and possible underlying psychia tric issues as she does have a history of depression. The patient is in agreement with this and claribel clancy would like social work to follow up regarding this type of disposition. 3. If the patient is medically cleared, the patient is psychiatrically cleared as there is no eviden ce of dangerousness at this time regarding suicidal thoughts or non-medically related disorganization . Psychiatry will sign off on this case at this time. Nancie Lyn MD cc: [id number] TT: 10/07/2016 14:33:49 Confirmation # [id number] Dictation # [id number]
--- NOTE | 2016-10-07 19:21 | CP.PCM.DIS ---
<Alba Werner - Last Filed: 10/07/16 20:09> Provider - Provider Date of Admission: 10/04/16 00:50 Attending physician: Dm Alberts MD Primary care physician: NO PRIMARY CARE PROVIDER Time Spent in preparation of Discharge (in minutes): 35 Diagnosis - Discharge Diagnosis (1) Alcohol withdrawal Status: c (2) Altered mental status Status: c Hospital Course - Lab Results Lab Results: Most Recent Lab Values WBC 6.4 10^3/ul (4.5-11.0) 10/07/16 05:00 RBC 4.13 10^6/uL (3.5-6.1) 10/07/16 05:00 Hgb 11.9 gm/dL (12.0-16.0) L 10/07/16 05:00 Hct 36.3 % (36.0-48.0) 10/07/16 05:00 MCV 87.9 fL (80.0-105.0) 10/07/16 05:00 MCH 28.8 pg (25.0-35.0) 10/07/16 05:00 MCHC 32.8 g/dl (31.0-37.0) 10/07/16 05:00 RDW 14.1 % (11.5-14.5) 10/07/16 05:00 Plt Count 156 10^3/uL (120.0-450.0) 10/07/16 05:00 MPV 10.2 fl (7.0-11.0) 10/07/16 05:00 Gran % 59.9 % (50.0-68.0) 10/03/16 21:06 Lymph % (Auto) 30.6 % (22.0-35.0) 10/03/16 21:06 [place] % (Auto) 9.1 % (1.0-6.0) H 10/03/16 21:06 Eos % (Auto) 0.3 % (1.5-5.0) L 10/03/16 21:06 Baso % (Auto) 0.1 % (0.0-3.0) 10/03/16 21:06 Gran # 4.53 (1.4-6.5) 10/03/16 21:06 Lymph # 2.3 (1.2-3.4) 10/03/16 21:06 [place] # 0.7 (0.1-0.6) H 10/03/16 21:06 Eos # 0.0 (0.0-0.7) 10/03/16 21:06 Baso # 0.01 K/mm3 (0.0-2.0) 10/03/16 21:06 pCO2 18 mm/Hg (35-45) L* 10/04/16 00:48 pO2 166.0 mm/Hg (80-100) H 10/04/16 00:48 HCO3 12.8 mmol/L (21-28) L 10/04/16 00:48 ABG pH 7.46 (7.35-7.45) H 10/04/16 00:48 ABG Total CO2 13.4 mmol.L (22-28) L 10/04/16 00:48 ABG O2 Saturation 98.5 % (95-98) H 10/04/16 00:48 ABG Base Excess -8.4 mmol/L (-2.0-3.0) L 10/04/16 00:48 ABG Potassium 2.0 mmol/L (3.6-5.2) L* 10/04/16 00:48 Sodium 149.0 mmol/L (132-148) H 10/04/16 00:48 Chloride 126.0 mmol/L (98-107) H 10/04/16 00:48 Glucose 57 mg/dl (65-105) L 10/04/16 00:48 Lactate 0.6 mmol/L (0.7-2.1) L 10/04/16 00:48 FiO2 21.0 % 10/04/16 00:48 Sodium 133 mmol/L (132-148) 10/07/16 06:30 Potassium 3.5 mmol/L (3.6-5.0) L 10/07/16 06:30 Chloride 101 mmol/L (98-107) 10/07/16 06:30 Carbon Dioxide 23 mmol/L (21-33) 10/07/16 06:30 Anion Gap 13 (10-20) 10/07/16 06:30 BUN 13 mg/dL (7-21) 10/07/16 06:30 Creatinine 0.7 mg/dL (0.5-1.4) 10/07/16 06:30 Est GFR ( Amer) > 60 10/07/16 06:30 Est GFR (Non-Af Amer) > 60 10/07/16 06:30 Random Glucose 103 mg/dL (70-110) 10/07/16 06:30 Calcium 8.9 mg/dL (8.4-10.5) 10/07/16 06:30 Phosphorus 2.9 mg/dL (2.5-4.5) 10/04/16 11:07 Magnesium 2.0 mg/dL (1.7-2.2) 10/04/16 11:07 Total Bilirubin 0.7 mg/dL (0.2-1.3) 10/07/16 06:30 AST 71 U/L (15-39) H 10/07/16 06:30 ALT 124 U/L (7-56) H 10/07/16 06:30 Alkaline Phosphatase 57 U/L (38-133) 10/07/16 06:30 Ammonia < 9 umol/L (9-33) L 10/03/16 23:01 Lactate Dehydrogenase 607 U/L (333-699) 10/03/16 21:06 Total Creatine Kinase 184 U/L (35-230) 10/03/16 21:06 Troponin I < 0.01 ng/mL 10/03/16 21:06 Total Protein 7.1 g/dL (5.8-8.3) 10/07/16 06:30 Albumin 3.8 g/dL (3.0-4.8) 10/07/16 06:30 Globulin 3.3 gm/dL 10/07/16 06:30 Albumin/Globulin Ratio 1.2 (1.1-1.8) 10/07/16 06:30 Triglycerides 64 mg/dL (35-160) 10/05/16 07:53 Cholesterol 193 mg/dL (130-200) 10/05/16 07:53 LDL Cholesterol Direct 80 mg/dL (0-129) 10/05/16 07:53 HDL Cholesterol 101 mg/dL (29-60) H 10/05/16 07:53 Free T4 1.38 ng/dL (0.78-2.19) 10/04/16 00:00 TSH 3rd Generation 2.50 mIU/mL (0.46-4.68) 10/04/16 00:00 Arterial Blood Potassium 2.0 mmol/L (3.6-5.2) L* 10/04/16 00:48 Urine Color Yellow (YELLOW) 10/04/16 00:30 Urine Appearance Clear (CLEAR) 10/04/16 00:30 Urine pH 6.0 (4.7-8.0) 10/04/16 00:30 Ur Specific Reed 1.010 (1.005-1.035) 10/04/16 00:30 Urine Protein Negative mg/dL (<30 mg/dL) 10/04/16 00:30 Urine Glucose (UA) Negative mg/dL (NEGATIVE) 10/04/16 00:30 Urine Ketones 40 mg/dL (NEGATIVE) H 10/04/16 00:30 Urine Blood Trace-lysed (NEGATIVE) H 10/04/16 00:30 Urine Nitrate Negative (NEGATIVE) 10/04/16 00:30 Urine Bilirubin Small (NEGATIVE) H 10/04/16 00:30 Urine Urobilinogen 0.2 E.U./dL (<1 E.U./dL) 10/04/16 00:30 Ur Leukocyte Esterase Negative Dio/uL (NEGATIVE) 10/04/16 00:30 Urine RBC 0 - 2 /hpf (0-2) 10/04/16 00:30 Urine WBC 1 - 3 /hpf (0-6) 10/04/16 00:30 Ur Epithelial Cells 1 - 3 /hpf (0-5) 10/04/16 00:30 Urine Bacteria Few (NEG) 10/04/16 00:30 Urine Opiates Screen Negative (NEGATIVE) 10/03/16 21:34 Urine Methadone Screen Negative (NEGATIVE) 10/03/16 21:34 Ur Barbiturates Screen Negative (NEGATIVE) 10/03/16 21:34 Ur Phencyclidine Scrn Negative (NEGATIVE) 10/03/16 21:34 Ur Amphetamines Screen Negative (NEGATIVE) 10/03/16 21:34 U Benzodiazepines Scrn Negative (NEGATIVE) 10/03/16 21:34 U Oth Cocaine Metabols Negative (NEGATIVE) 10/03/16 21:34 U Cannabinoids Screen Negative (NEGATIVE) 10/03/16 21:34 Alcohol, Quantitative < 10 mg/dL (0-10) 10/03/16 21:06 Hepatitis A IgM Ab Negative (NEGATIVE) 10/04/16 00:00 Hep Bs Antigen Negative (NEGATIVE) 10/04/16 00:00 Hep B Core IgM Ab Negative (NEGATIVE) 10/04/16 00:00 Hepatitis C Antibody Negative (NEGATIVE) 10/04/16 00:00 - Hospital Course Hospital Course: Patient is a 31 year old female with PMH of depression not currently treated and alcohol abuse who presented to the ED with altered mental status after having an argument with her . Patient was having paranoid delusions about being the subject of a sting operation with her computer's being hacked. Patient's family admitted to the patient having a history of regular heavy binge drinking and had been consuming 1-2 bottles of wine a day for the past week. Patient had been sober for 1 day before onset of symptoms. Patient was not oriented to time and place. UDS was negative for drugs or alcohol, head CT was negative, TSH was wnl, patient had transaminitis. She was admitted to telemetry floor for alcohol withdrawal and altered mental status and monitored via the CIWA protocol, was given a banana bag, mulitvitamins, librium and ativan , and PSYCH was consulted. LDL was within normal limits, hepatitis panel was negative, and LFT's trended down. Patient improved over the next 4 days, being able to tolerate an ativan taper with no tachycardia, hypertension, agitation, or altered mental status. Psychiatry attributed the altered mental status to alcohol withdrawal and cleared patient for discharge with recommendation that the the patient follow up with an outpatient program for depression and alcohol addiction. Patient was observed ambulating and carrying out tasks of daily living with normal and appropriate affect, mood, and interaction with others, and patient and patient's family was comfortable with her being discharged to home under their care with plans for close follow up with her PCP, Dr. Hooper. Patient was discharged to home. For full hospital course refer to chart Discharge Exam - Head Exam Head Exam: ATRAUMATIC - Eye Exam Eye Exam: Normal appearance. absent: Conjunctival injection, Scleral icterus - ENT Exam ENT Exam: Mucous Membranes Moist, Normal Oropharynx - Respiratory Exam Respiratory Exam: Clear to PA & Lateral, NORMAL BREATHING PATTERN. absent: Accessory Muscle Use, Respiratory Distress - Cardiovascular Exam Cardiovascular Exam: RRR, +S1, +S2. absent: Systolic Murmur - GI/Abdominal Exam GI & Abdominal Exam: Soft. absent: Distended, Tenderness - Extremities Exam Extremities exam: pedal pulses present Additional comments: no pedal edema, calf tenderness, - Back Exam Back exam: NORMAL INSPECTION. absent: CVA tenderness (L), CVA tenderness (R) - Neurological Exam Neurological exam: Alert, Normal Gait, Oriented x3 - Psychiatric Exam Psychiatric exam: Normal Affect, Normal Mood - Skin Skin Exam: Intact, Normal Color, Warm Discharge Plan - Discharge Medications Prescriptions: Lorazepam [Ativan] 0.5 mg PO HS #2 tab - Follow Up Plan Condition: STABLE Disposition: HOME/ ROUTINE Instructions: Alcohol Withdrawal (DC), Alcoholic Hepatitis (DC) Additional Instructions: Pt is to follow up with PMD Dr. Hooper 1-2 weeks from discharge. Alcohol consumptions is seriously detrimental to your health and can result in further hospitalizations. It is strongly advised you stop drinking and pursue an outpatient program for support Take 1 dose of 0.5 ativan PO tonight and then 1 dose of 0.5 PO ativan tomorrow IF needed for anxiety, tachycardia, tremors, or agitation Do not consume alcohol or operate machinery while taking ativan Return to the ED if your symptoms return or worsen Referrals: PCP,NO [Primary Care Provider] - Follow up with primary <Dm Alberts - Last Filed: 10/15/16 13:15> Provider - Provider Date of Admission: 10/04/16 00:50 Attending physician: Dm Alberts MD Primary care physician: NO PRIMARY CARE PROVIDER Hospital Course - Lab Results Lab Results: Most Recent Lab Values WBC 6.4 10^3/ul (4.5-11.0) 10/07/16 05:00 RBC 4.13 10^6/uL (3.5-6.1) 10/07/16 05:00 Hgb 11.9 gm/dL (12.0-16.0) L 10/07/16 05:00 Hct 36.3 % (36.0-48.0) 10/07/16 05:00 MCV 87.9 fL (80.0-105.0) 10/07/16 05:00 MCH 28.8 pg (25.0-35.0) 10/07/16 05:00 MCHC 32.8 g/dl (31.0-37.0) 10/07/16 05:00 RDW 14.1 % (11.5-14.5) 10/07/16 05:00 Plt Count 156 10^3/uL (120.0-450.0) 10/07/16 05:00 MPV 10.2 fl (7.0-11.0) 10/07/16 05:00 Gran % 59.9 % (50.0-68.0) 10/03/16 21:06 Lymph % (Auto) 30.6 % (22.0-35.0) 10/03/16 21:06 [place] % (Auto) 9.1 % (1.0-6.0) H 10/03/16 21:06 Eos % (Auto) 0.3 % (1.5-5.0) L 10/03/16 21:06 Baso % (Auto) 0.1 % (0.0-3.0) 10/03/16 21:06 Gran # 4.53 (1.4-6.5) 10/03/16 21:06 Lymph # 2.3 (1.2-3.4) 10/03/16 21:06 [place] # 0.7 (0.1-0.6) H 10/03/16 21:06 Eos # 0.0 (0.0-0.7) 10/03/16 21:06 Baso # 0.01 K/mm3 (0.0-2.0) 10/03/16 21:06 pCO2 18 mm/Hg (35-45) L* 10/04/16 00:48 pO2 166.0 mm/Hg (80-100) H 10/04/16 00:48 HCO3 12.8 mmol/L (21-28) L 10/04/16 00:48 ABG pH 7.46 (7.35-7.45) H 10/04/16 00:48 ABG Total CO2 13.4 mmol.L (22-28) L 10/04/16 00:48 ABG O2 Saturation 98.5 % (95-98) H 10/04/16 00:48 ABG Base Excess -8.4 mmol/L (-2.0-3.0) L 10/04/16 00:48 ABG Potassium 2.0 mmol/L (3.6-5.2) L* 10/04/16 00:48 Sodium 149.0 mmol/L (132-148) H 10/04/16 00:48 Chloride 126.0 mmol/L (98-107) H 10/04/16 00:48 Glucose 57 mg/dl (65-105) L 10/04/16 00:48 Lactate 0.6 mmol/L (0.7-2.1) L 10/04/16 00:48 FiO2 21.0 % 10/04/16 00:48 Sodium 133 mmol/L (132-148) 10/07/16 06:30 Potassium 3.5 mmol/L (3.6-5.0) L 10/07/16 06:30 Chloride 101 mmol/L (98-107) 10/07/16 06:30 Carbon Dioxide 23 mmol/L (21-33) 10/07/16 06:30 Anion Gap 13 (10-20) 10/07/16 06:30 BUN 13 mg/dL (7-21) 10/07/16 06:30 Creatinine 0.7 mg/dL (0.5-1.4) 10/07/16 06:30 Est GFR ( Amer) > 60 10/07/16 06:30 Est GFR (Non-Af Amer) > 60 10/07/16 06:30 POC Glucose (mg/dL) 104 mg/dL (65-110) 10/03/16 20:56 Random Glucose 103 mg/dL (70-110) 10/07/16 06:30 Calcium 8.9 mg/dL (8.4-10.5) 10/07/16 06:30 Phosphorus 2.9 mg/dL (2.5-4.5) 10/04/16 11:07 Magnesium 2.0 mg/dL (1.7-2.2) 10/04/16 11:07 Total Bilirubin 0.7 mg/dL (0.2-1.3) 10/07/16 06:30 AST 71 U/L (15-39) H 10/07/16 06:30 ALT 124 U/L (7-56) H 10/07/16 06:30 Alkaline Phosphatase 57 U/L (38-133) 10/07/16 06:30 Ammonia < 9 umol/L (9-33) L 10/03/16 23:01 Lactate Dehydrogenase 607 U/L (333-699) 10/03/16 21:06 Total Creatine Kinase 184 U/L (35-230) 10/03/16 21:06 Troponin I < 0.01 ng/mL 10/03/16 21:06 Total Protein 7.1 g/dL (5.8-8.3) 10/07/16 06:30 Albumin 3.8 g/dL (3.0-4.8) 10/07/16 06:30 Globulin 3.3 gm/dL 10/07/16 06:30 Albumin/Globulin Ratio 1.2 (1.1-1.8) 10/07/16 06:30 Triglycerides 64 mg/dL (35-160) 10/05/16 07:53 Cholesterol 193 mg/dL (130-200) 10/05/16 07:53 LDL Cholesterol Direct 80 mg/dL (0-129) 10/05/16 07:53 HDL Cholesterol 101 mg/dL (29-60) H 10/05/16 07:53 Free T4 1.38 ng/dL (0.78-2.19) 10/04/16 00:00 TSH 3rd Generation 2.50 mIU/mL (0.46-4.68) 10/04/16 00:00 Arterial Blood Potassium 2.0 mmol/L (3.6-5.2) L* 10/04/16 00:48 Urine Color Yellow (YELLOW) 10/04/16 00:30 Urine Appearance Clear (CLEAR) 10/04/16 00:30 Urine pH 6.0 (4.7-8.0) 10/04/16 00:30 Ur Specific Reed 1.010 (1.005-1.035) 10/04/16 00:30 Urine Protein Negative mg/dL (<30 mg/dL) 10/04/16 00:30 Urine Glucose (UA) Negative mg/dL (NEGATIVE) 10/04/16 00:30 Urine Ketones 40 mg/dL (NEGATIVE) H 10/04/16 00:30 Urine Blood Trace-lysed (NEGATIVE) H 10/04/16 00:30 Urine Nitrate Negative (NEGATIVE) 10/04/16 00:30 Urine Bilirubin Small (NEGATIVE) H 10/04/16 00:30 Urine Urobilinogen 0.2 E.U./dL (<1 E.U./dL) 10/04/16 00:30 Ur Leukocyte Esterase Negative Dio/uL (NEGATIVE) 10/04/16 00:30 Urine RBC 0 - 2 /hpf (0-2) 10/04/16 00:30 Urine WBC 1 - 3 /hpf (0-6) 10/04/16 00:30 Ur Epithelial Cells 1 - 3 /hpf (0-5) 10/04/16 00:30 Urine Bacteria Few (NEG) 10/04/16 00:30 Urine Opiates Screen Negative (NEGATIVE) 10/03/16 21:34 Urine Methadone Screen Negative (NEGATIVE) 10/03/16 21:34 Ur Barbiturates Screen Negative (NEGATIVE) 10/03/16 21:34 Ur Phencyclidine Scrn Negative (NEGATIVE) 10/03/16 21:34 Ur Amphetamines Screen Negative (NEGATIVE) 10/03/16 21:34 U Benzodiazepines Scrn Negative (NEGATIVE) 10/03/16 21:34 U Oth Cocaine Metabols Negative (NEGATIVE) 10/03/16 21:34 U Cannabinoids Screen Negative (NEGATIVE) 10/03/16 21:34 Alcohol, Quantitative < 10 mg/dL (0-10) 10/03/16 21:06 Hepatitis A IgM Ab Negative (NEGATIVE) 10/04/16 00:00 Hep Bs Antigen Negative (NEGATIVE) 10/04/16 00:00 Hep B Core IgM Ab Negative (NEGATIVE) 10/04/16 00:00 Hepatitis C Antibody Negative (NEGATIVE) 10/04/16 00:00 Attending/Attestation - Attestation I have personally seen and examined this patient.: Yes I have fully participated in the care of the patient.: Yes I have reviewed all pertinent clinical information, including history, physical exam and plan: Yes Notes (Text): I have seen and examined patient at bedside with the resident. This is 31 year old female with history of alcohol abuse and depression who got admitted for AMS secondary to alcohol withdrawal syndrome. CT head and UDS is negative. She was also given tapering doses of ativan and librium. She also has transaminitis most likely secondary to alcohol. Hep panel is negative. Hepatic ultrasound showed fatty infiltration. Psych consult appreciated and it was recommended to follow up with outpatient psychiatrist for depression. She was able to walk steadily in the hallway without any problem. Upon discharge patient will follow up with Dr Hooper. Dr Dm Alberts
== END 2016-10-07 15:45 | disposition home or self-care (01) | DRG 897 ==
LOC: ED 20:43 → ERH 10-04 00:37 → EDBD 10-04 00:37 → UNDOADMOB 10-04 00:37 → OBSVTOIN 10-04 00:50 → ERH 10-04 00:50 → 5RNO 10-04 03:36 → ERH 10-04 03:36 → 5RNO 10-04 13:56 → 2RNO 10-04 13:56 → OBSVTOIN 10-05 07:31 → INTOOBSV 10-05 07:31 → 2RSO 10-05 20:50 → 2RNO 10-05 20:50 → INTOOBSV 10-06 07:47 → OBSVTOIN 10-06 07:47
PROVIDERS: ADMIT Internal Medicine; ATTEND Hospitalist
DX: F10.231 Alcohol dependence with withdrawal delirium (principal); F22 Delusional disorders; F32.89 Other specified depressive episodes; R40.2410 Glasgow coma scale score 13-15, unspecified time; F41.9 Anxiety disorder, unspecified; R74.0 Nonspecific elevation of levels of transaminase and lactic acid dehydrogenase [LDH]; R00.0 Tachycardia, unspecified

== ENCOUNTER 2017-01-31 02:54 | Observation (INO) | payer OTHER ==
[2017-01-31 03:05] VITALS: BMI 22.1
[2017-01-31] MEDS ORDERED: Folic Acid 1 MG, Thiamine 100 MG, Multivitamin (MVI) 10 ML in Dextrose 5% In Water 1,00... IV SCH (03:15)
[2017-01-31 03:19] VITALS: TEMP 98.2
--- NOTE | 2017-01-31 03:24 | ED PDOC ---
Arrival/HPI - General Historian: Patient - History of Present Illness Symptom Onset: Gradual Severity Level: Mild Activities at Onset: Light - General Chief Complaint: Alcohol Ingestion Time Seen by Provider: 01/31/17 03:01 - History of Present Illness Narrative History of Present Illness (Text): 01/31/17 03:21 Angie Whitley is a 31 year old female, with a history of alcohol abuse, presents to the emergency department via ambulance for alcohol intoxication. Patient admits to drinking alcohol throughout the day. History and ROS limited because patient is a poor historian. Denies any suicidal or homicidal ideations. When talking the the emergency department staff, patient reported of having intermittent auditory and visual hallucinations and flight of ideas. (Irvin Arzate) Past Medical History - Provider Review Nursing Documentation Reviewed: Yes - Cardiac Hx Cardiac Disorders: No - Pulmonary Hx Respiratory Disorders: No - Neurological Hx Neurological Disorder: No - HEENT Hx HEENT Disorder: No - Renal Hx Renal Disorder: No - Endocrine/Metabolic Hx Endocrine Disorders: No - Hematological/Oncological Hx Blood Disorders: No - Integumentary Hx Dermatological Disorder: No - Musculoskeletal/Rheumatological Hx Falls: No - Gastrointestinal Hx Gastrointestinal Disorders: No - Genitourinary/Gynecological Hx Genitourinary Disorders: No - Psychiatric Hx Anxiety: Yes Hx Substance Use: No Other/Comment: drinks "a lot" of vodka every day - Anesthesia Hx Anesthesia: No Family/Social History - Physician Review Nursing Documentation Reviewed: Yes Family/Social History: No Known Family HX Smoking Status: Unknown If Ever Smoked Hx Alcohol Use: Yes Hx Substance Use: No Allergies/Home Meds Allergies/Adverse Reactions: Allergies No Known Allergies Allergy (Verified 01/31/17 11:19) Home Medications: Home Meds Medication Instructions Recorded Confirmed No Known Home Med 01/31/17 01/31/17 Review of Systems - Review of Systems Systems not reviewed;Unavailable: Intoxicated Psychiatric: Other (auditory and visual hallucinations ). absent: Suicidal Ideation Physical Exam Vital Signs Reviewed: Yes Temperature: Afebrile Blood Pressure: Normal Pulse: Regular Respiratory Rate: Normal Appearance: Positive for: Non-Toxic Pain Distress: None Mental Status: No: Agitated, Lethargic, Comatose - Physical Exam Narrative Physical Exam (Text): Patient is in no distress, no airway compromise, breathing without difficulty, good insp/exp effort. No signs of head/torso trauma. Following commands without difficulty. Head: Present: Atraumatic, Normocephalic. No: Tenderness, Contusion, Swelling, Ecchymosis, Abrasion, Laceration Pupils: Present: PERRL Extroacular Muscles: Present: EOMI Conjunctiva: Present: Normal Mouth: Present: Moist Mucous Membranes Neck: Present: Normal Range of Motion. No: MIDLINE TENDERNESS, Paraspinal Tenderness Respiratory/Chest: Present: Clear to Auscultation, Good Air Exchange. No: Respiratory Distress, Accessory Muscle Use Cardiovascular: Present: Regular Rate and Rhythm, Normal S1, S2. No: Murmurs Abdomen: Present: Normal Bowel Sounds. No: Tenderness, Distention, Peritoneal Signs, Rebound, Guarding Back: Present: Normal Inspection. No: Midline Tenderness, Paraspinal Tenderness Upper Extremity: Present: Normal Inspection. No: Cyanosis, Edema Lower Extremity: Present: superficial abrasions to b/l knees with full active and passive range of motion. No: Edema Neurological: Present: GCS=15, CN II-XII Intact Skin: Present: Warm, Dry, Normal Color. No: Rashes Lymphatic: Present: OX3, NI, NC Psychiatric: Present: Alert. intermittent visual and auditory hallucinations Absent: suicidal/homicidal ideations (Irvin Arzate) Vital Signs Temp Pulse Resp BP Pulse Ox 01/31/17 10:12 94 H 16 145/94 H 100 01/31/17 08:25 93 H 15 140/83 99 01/31/17 06:41 89 18 139/82 99 01/31/17 03:18 98.2 F 86 18 145/91 H 100 Medical Decision Making ED Course and Treatment: 01/31/17 03:26 Impression: A 31 year old female who presents to the ed for intoxication. Denies any SI or HI. Patient intoxication, otherwise normal exam. Plan: -- Labs -- Drug screen -- Dextrose 5% -- Ativan -- Urinalysis -- Reassess and disposition Progress Notes: Will place patient on EDObs for intoxication. (Irvin Arzate) - Medication Orders Current Medication Orders: Discontinued Medications Acetaminophen (Tylenol 325mg Tab) 650 mg PO Q6H PRN PRN Reason: Fever >100.4 F Chlordiazepoxide (Librium) 25 mg PO Q6 TERRANCE PRN Reason: Protocol Folic Acid 1 mg/ Thiamine HCl 100 mg/ Multivitamins/Vitamin C 10 ml/ Dextrose 1 ,011.2 mls @ 100 mls/hr IV .Q10H7M TERRANCE Last Admin: 01/31/17 08:25 Dose: 100 mls/hr Dextrose/Sodium Chloride (Dextrose 5%/0.45% Ns 1000 Ml) 1,000 mls @ 100 mls/hr IV .Q10H TERRANCE Lorazepam (Ativan) 2 mg IVP ONCE ONE Stop: 01/31/17 03:16 Last Admin: 01/31/17 04:10 Dose: 2 mg Ondansetron HCl (Zofran Inj) 4 mg IVP Q6H PRN PRN Reason: Nausea/Vomiting Pantoprazole Sodium (Protonix Inj) 40 mg IVP DAILY TERRANCE Thiamine HCl (Vitamin B1 Inj) Confirm Administered Dose 200 mg .ROUTE .STK-MED ONE Stop: 01/31/17 03:52 Last Admin: 01/31/17 04:10 Dose: 200 mg ED OBSERVATION Date of observation admission: 01/31/17 Time of observation admission: 03:28 - Observation admission statement Patient is being placed in observation because:: Alcohol intoxication (Irvin Arzate) - Goals of Observation Goals of observation are:: Pending sobriety, reevaluation and disposition (Irvin Arzate) - Progress Note Progress Note: 01/31/17 07:05 Case endorsed to me by Dr. Arzate, pending PES evaluation. Patient presented with alcohol intoxication. 01/31/17 09:00 Patient resting comfortably, in no acute distress. 01/31/17 09:58 Patient evaluated by PES worker, who recommends admission on a voluntary bases. Patient does not wish to stay so it was recommended for her to sign out against medical advise. (Darnell Costello) 01/31/17 05:31 Patient sleeping comfortably in the ed with stable vitals. No acute distress. 01/31/17 07:00 patient signed out to Dr. Costello in stable condition, pending reeval, PES evaluation, dispo (Irvin Arzate) - Scribe Statement The provider has reviewed the documentation as recorded by the Scribe - Scribe Statement Royer García (Irvin Arzate) Provider Attestation: All medical record entries made by the Scribe were at my direction and personally dictated by me. I have reviewed the chart and agree that the record accurately reflects my personal performance of the history, physical exam, medical decision making, and the department course for this patient. I have also personally directed, reviewed, and agree with the discharge instructions and disposition. (Irvin Arzate) Disposition/Present on Arrival - Present on Arrival Any Indicators Present on Arrival: No History of DVT/PE: No History of Uncontrolled Diabetes: No Urinary Catheter: No History of Decub. Ulcer: No History Surgical Site Infection Following: None - Disposition Have Diagnosis and Disposition been Completed?: Yes Disposition Time: 03:28 Patient Plan: Discharge - Disposition Diagnosis: Alcohol intoxication, Hallucinations Disposition: AGAINST MEDICAL ADVICE Condition: STABLE
[2017-01-31] MEDS ORDERED: Thiamine 100 mg/ml Inj ONE (03:51)
[2017-01-31 04:29] LABS: URINE BILIRUBIN NEGATIVE (NEGATIVE); URINE BLOOD NEGATIVE (NEGATIVE); URINE GLUCOSE (UA) NEGATIVE (NEGATIVE); URINE LEUKOCYTE ESTERASE MODERATE Leu/uL (NEGATIVE); URINE NITRATE NEGATIVE (NEGATIVE); URINE PROTEIN NEGATIVE mg/dL (<30 mg/dL); URINE UROBILINOGEN 0.2 E.U./dL (<1 E.U./dL)
[2017-01-31 04:31] LABS: BASO # 0.01 K/mm3 (0.0-2.0); BASO % 0.1 % (0.0-3.0); EOS # 0.2 (0.0-0.7); EOS % 1.9 % (1.5-5.0); GRAN # 7.68 (1.4-6.5); GRAN % 71.1 % (50.0-68.0); HEMOGLOBIN 13.7 g/dL (12.0-16.0); LYMPH # 2.3 (1.2-3.4); LYMPH % 21.4 % (22.0-35.0); MEAN CELL VOLUME 85.4 fl (80.0-105.0); MEAN CORPUSCULAR HEMOGLOBIN 29.5 pg (25.0-35.0); MEAN CORPUSCULAR HGB CONC 34.5 g/dl (31.0-37.0); MEAN PLATELET VOLUME 10.2 fl (7.0-11.0); MONO # 0.6 (0.1-0.6); MONO % 5.5 % (1.0-6.0); PLATELET COUNT 207 10^3/uL (120.0-450.0); RBC 4.65 10^6/uL (3.5-6.1); RED CELL DISTRIBUTION WIDTH 13.9 % (11.5-14.5); WHITE BLOOD COUNT 10.8 10^3/ul (4.5-11.0)
[2017-01-31 04:33] LABS: SALICYLATE < 1 mg/dL (2.0-20.0)
[2017-01-31 04:35] LABS: ALB/GLOB RATIO 1.3 (1.1-1.8); ALBUMIN 4.6 g/dL (3.0-4.8); ALT/SGPT 197 U/L (7-56); AST/SGOT 121 U/L (15-39); BLOOD UREA NITROGEN 11 mg/dL (7-21); CALCIUM 9.6 mg/dL (8.4-10.5); GFR AFRICAN-AMERICAN > 60; GFR NON-AFRICAN AMERICAN > 60
[2017-01-31 04:38] LABS: URINE APPEARANCE SL CLOUDY (CLEAR); URINE COLOR YELLOW (YELLOW)
[2017-01-31 04:54] LABS: ACETAMINOPHEN < 10.0 ug/ml (10.0-20.0)
[2017-01-31 05:00] LABS: URINE BACTERIA FEW (NEG); URINE RBC 0 - 2 /hpf (0-2)
[2017-01-31 10:15] VITALS: BP 145/94; PULSE 94; RESP 16; O2SAT 100
[2017-01-31] MEDS ORDERED: Dextrose 5%/0.45% NS 1,000 ML IV SCH (12:45)
[2017-02-01 08:19] LABS: ALB/GLOB RATIO 1.3 (1.1-1.8); ALBUMIN 3.5 g/dL (3.0-4.8); ALT/SGPT 139 U/L (7-56); AST/SGOT 72 U/L (15-39); BLOOD UREA NITROGEN 8 mg/dL (7-21); CALCIUM 8.8 mg/dL (8.4-10.5); GFR AFRICAN-AMERICAN > 60; GFR NON-AFRICAN AMERICAN > 60; MAGNESIUM 1.9 mg/dL (1.7-2.2)
== END 2017-01-31 10:15 | disposition left against medical advice (07) ==
LOC: ED 02:54 → EROBSV 03:20 → INTOOBSV 12:26 → OBSVTOIN 12:26 → ERH 12:36 → EROBSV 12:36
PROVIDERS: ADMIT Internal Medicine; ATTEND Emergency Medicine
DX: F10.129 Alcohol abuse with intoxication, unspecified (principal); Y90.0 Blood alcohol level of less than 20 mg/100 ml; R44.3 Hallucinations, unspecified
CPT/HCPCS: 36415; 80053; 80320; 80329; 81001; 83735; 84703; 85025; 87086; 90791; 96365; 96366; 96375; 99285; G0378; J2060; J3411; J7070

== ENCOUNTER 2017-01-31 10:50 | Inpatient (IN) | payer OTHER ==
[2017-01-31 11:35] VITALS: BMI 30.1
--- NOTE | 2017-01-31 12:20 | ED PDOC ---
Arrival/HPI - General Chief Complaint: ENT Problem Time Seen by Provider: 01/31/17 11:24 Historian: Patient - History of Present Illness Narrative History of Present Illness (Text): 01/31/17 12:31 A 31 year old female, presents to the emergency department complaining of eye twitching. Patient reports coming to the emergency department yesterday and twitching began after leaving against medical advice. Patient admits to drinking , last drink was three days ago. Reports to having alcohol withdrawal in the past. Denies any other complaints at this time. Symptom Onset: Sudden Symptom Course: Unchanged Activities at Onset: Rest Context: Home Past Medical History - Provider Review Nursing Documentation Reviewed: Yes - Infectious Disease Hx of Infectious Diseases: None - Cardiac Hx Cardiac Disorders: No Hx Hypertension: No - Pulmonary Hx Tuberculosis: No - Neurological HX Cerebrovascular Accident: No Hx Seizures: No - HEENT Hx HEENT Disorder: No - Renal Hx Renal Disorder: No - Endocrine/Metabolic Hx Endocrine Disorders: No - Hematological/Oncological Hx Cancer: No - Integumentary Hx Dermatological Disorder: No - Musculoskeletal/Rheumatological Hx Falls: No - Gastrointestinal Hx Gastrointestinal Disorders: No - Genitourinary/Gynecological Hx Sexually Transmitted Diseases: No - Psychiatric Hx Anxiety: Yes Hx Substance Use: No Other/Comment: drinks "a lot" of vodka every day - Anesthesia Hx Anesthesia: No Family/Social History - Physician Review Nursing Documentation Reviewed: Yes Family/Social History: No Known Family HX Smoking Status: Never Smoked Hx Alcohol Use: Yes Frequency of alcohol use: Daily Hx Substance Use: No Allergies/Home Meds Allergies/Adverse Reactions: Allergies No Known Allergies Allergy (Verified 01/31/17 11:19) Review of Systems - Review of Systems Constitutional: absent: Fatigue, Fevers Eyes: Other (eye twitching). absent: Vision Changes, Photophobia, Eye Pain ENT: absent: Hearing Changes, Sore Throat Respiratory: absent: SOB Cardiovascular: absent: Chest Pain, Palpitations, Calf Pain Gastrointestinal: absent: Abdominal Pain, Nausea, Vomiting Genitourinary Female: absent: Dysuria Musculoskeletal: absent: Back Pain, Neck Pain Skin: absent: Rash Neurological: Other (twitching to right eyelid). absent: Headache, Dizziness, Facial Droop, Seizure Endocrine: absent: Polyuria Hemo/Lymphatic: absent: Easy Bleeding Psychiatric: Other (history of paranoid thoughts, possible hallucinations). absent: Suicidal Ideation Physical Exam - Physical Exam Narrative Physical Exam (Text): 01/31/17 12:30 Head: Atraumatic. Normocephalic. Eyes: PERRL. EOMI. Conjunctivae are not pale. ENT: Mucous membranes are moist and intact. Oropharynx is clear and symmetric. Neck: Supple. Full ROM. No JVD. No lymphadenopathy. Cardiovascular: Regular rate. Regular rhythm. Pulmonary/Chest: No evidence of respiratory distress. Clear to auscultation bilaterally. Abdominal: Soft and non-distended. There is no tenderness. Back: No CVA tenderness. Extremities: No edema. No cyanosis. No clubbing. Full range of motion in all extremities. No calf tenderness. Skin: Skin is warm and dry. No petechiae. No purpura. Neurological: Alert, awake, and oriented to person, place, time, and situation. Normal speech. Mildly tremulous. No facial droop. Occasional twitching to right eyelid. Visual acuity and tobar intact. No pain with eye movements. Psychiatric: Good eye contact. Paranoid. Cooperative in ED. Not aggressive or agitated. Denies suicidal or homicidal ideation. Possible recent auditory hallucinations. Denies hallucinations currently. Vital Signs Reviewed: Yes Vital Signs Temp Pulse Resp BP Pulse Ox 01/31/17 13:57 85 18 138/85 100 01/31/17 11:22 98.3 F 95 H 18 120/85 99 Temperature: Afebrile Blood Pressure: Normal Pulse: Regular Respiratory Rate: Normal Appearance: Positive for: Well-Appearing, Non-Toxic, Comfortable Pain Distress: None Mental Status: Positive for: Alert and Oriented X 3 Medical Decision Making ED Course and Treatment: 01/31/17 12:18 Impression: A 31 year old female with eye twitching. Patient was recently discharged from this hospital this AM against medical advice. Differential Diagnosis included but are not limited to: alcohol withdrawal Plan: -- labs -- IV fluids, Ativan -- Reassess and disposition Prior Visits: Notes and results from previous visits were reviewed. Patient was last seen in the emergency department on 01/30/17 for evaluation of alcohol intoxication. Patient signed out against medical advice. Progress Notes: With patient's permission, I also obtained patient's history from her mother on the phone. Mother states patient has had hallucinations in the past when going through alcohol withdrawal. Currently, patient is cooperative, has facial twitch , could be inside sales representative of alcohol withdrawal. I did review patient's recent ED visit and reviewed PES assessment. She is currently hot homicidal or suicidal. Prior admission in September, reviewed. She admits to last drink 3 days ago. She is noted to have occasional twitching noted to eyelid, right greater than left, with no associated visual acuity or visual field deficits, no associated focal motor weakness. I reviewed blood work from this AM, electrolytes were unremarkable. 01/31/17 13:30 On reevaluation, patient is calm and cooperative. Patient is agreeable for admission to manage likely symptoms of alcohol withdrawal. Denies any suicidal or homicidal ideation. Case discussed with managed security sales consultant physician, Dr. Ovalle, who accepts patient under her service. 01/31/17 13:57 - Lab Interpretations Lab Results: Lab Results 01/31/17 12:17: Alcohol, Quantitative < 10 I have reviewed the lab results: Yes - Medication Orders Current Medication Orders: Sodium Chloride (Sodium Chloride 0.9%) 1,000 mls @ 100 mls/hr IV .Q10H TERRANCE Last Admin: 01/31/17 13:44 Dose: 100 mls/hr Discontinued Medications Lorazepam (Ativan) 1 mg PO ONCE ONE PRN Reason: Protocol Stop: 01/31/17 12:18 Last Admin: 01/31/17 13:44 Dose: 1 mg - Scribe Statement The provider has reviewed the documentation as recorded by the Mike Huerta Provider Scribe Attestation: All medical record entries made by the Abbieibdiana were at my direction and personally dictated by me. I have reviewed the chart and agree that the record accurately reflects my personal performance of the history, physical exam, medical decision making, and the department course for this patient. I have also personally directed, reviewed, and agree with the discharge instructions and disposition. Disposition/Present on Arrival - Present on Arrival Any Indicators Present on Arrival: No History of DVT/PE: No History of Uncontrolled Diabetes: No Urinary Catheter: No History of Decub. Ulcer: No History Surgical Site Infection Following: None - Disposition Have Diagnosis and Disposition been Completed?: Yes Diagnosis: Alcohol withdrawal Disposition: HOSPITALIZED Disposition Time: 12:30 Patient Plan: Admission, Telemetry Patient Problems: Current Active Problems Problem Status Onset Alcohol intoxication Acute Alcohol withdrawal Acute Hallucinations Acute Condition: FAIR
[2017-01-31] MEDS ORDERED: Sodium Chloride 0.9% 1,000 ML IV SCH (12:30)
[2017-01-31 13:53] LABS: BARBITURATES, UR NEGATIVE (NEGATIVE); BENZODIAZEPINES, UR NEGATIVE (NEGATIVE); OPIATES, UR NEGATIVE (NEGATIVE); PHENCYCLIDINE, UR NEGATIVE (NEGATIVE)
[2017-01-31] MEDS ORDERED: Folic Acid 1 MG, Thiamine 100 MG, Multivitamin (MVI) 10 ML in Sodium Chloride 0.9% 1,00... IV SCH ×2 (16:30→16:53)
[2017-01-31] MEDS ORDERED: Pneumococcal 23-Valent Vaccine IM ONE (16:31)
--- NOTE | 2017-01-31 23:29 | CARD ---
APPROVED REPORT EKG Measurement Heart [id number] <Conclusion> Normal sinus rhythm Early repolarization pattern Normal ECG
--- NOTE | 2017-02-01 04:34 | HP ---
HISTORY OF PRESENT ILLNESS: The patient is a 31-year-old who came to emergency room earlier this morning. At that point, she was seen by Dr. Arzate. She is not feeling well, trembling and shaking, has generalized weakness. The patient is not a very good historian. However, she states she has been drinking heavy, but did not drink for last 2 days, so that made her feel nauseous, shaky, trembling, and she was having auditory hallucination and she was seeing things. So, ambulance was called and she was brought to emergency room. She has significant past medical history of depression and history of alcohol abuse. The patient was given IV fluids earlier and she started to feel better. Since she signed against medical advice, she her mom and to mom, she did not look well, so she advised her to go to emergency room again. Denies any nausea. She does complain of epigastric discomfort. She also stated that her eye was twitching. Denies any nausea, no hemoptysis, no hematemesis. ALLERGIES: SHE IS NOT ALLERGIC TO ANY MEDICATION. MEDICATIONS AT HOME: She does not take medicine at home. She used to be on Klonopin intermittently. SOCIAL HISTORY: She is . She used to be a heavy smoker. She does drink intermittently heavy. Denies any drug use. REVIEW OF SYSTEMS: Complain of generalized weakness and having trembling in the hands. PHYSICAL EXAMINATION GENERAL: She is awake and alert, communicative. VITAL SIGNS: She is afebrile. Pulse 82, respirations 20, blood pressure 110/65. LUNGS: Bilateral fair air flow. No rhonchi or crackles. HEART: S1 and S2 audible. ABDOMEN: Soft, nontender. No rebound. No guarding. NEUROLOGIC: The patient is awake and alert. Able to communicate. LABORATORY DATA: WBC is 10.8, hemoglobin 13, hematocrit 39, platelets of 207. Chemistry; sodium 136, potassium 3.7, chloride 100, CO2 of 24, BUN 11, creatinine 0.6, blood sugar 104. LFTs shows AST of 121, ALT 197, ammonia level is less than 9, CPK 189. Urinalysis shows moderate leukocyte, WBC is 5-10. Urine drug screen is negative. Hepatitis profile is negative. ASSESSMENT: 1. Alcohol intoxication leading to alcohol withdrawal. 2. Auditory and visual hallucination. 3. Alcoholic gastritis. PLAN: We will start the patient on IV fluids. Started her on Librium. Started her on Protonix. We will get psych consult by . Follow up electrolyte in a.m. Katalina Ovalle MD
[2017-02-01] MEDS ORDERED: Pantoprazole 40 mg EC Tab PO SCH (06:00)
[2017-02-01 08:47] VITALS: BP 132/78; PULSE 69; RESP 18; TEMP 98; O2SAT 99
--- NOTE | 2017-02-01 22:01 | CON ---
DATE: HISTORY OF PRESENT ILLNESS: The patient is a 31-year-old female with a history of alcohol dependency, mood disorder, NOS, rule out substance induced mood disorder, no psychiatric treatment, who is admitted to the medical floor for alcohol withdrawal after she presented to the ER indicating that she was not feeling well and she was shaking and had generalized weakness. Patient does have a significant history of DTs, for which she was treated for in 09/2016. During that hospitalization, this provider followed up with her due to her hallucinations and delusions on the unit, which improved with benzo treatment on the unit. Psychiatry was again consulted for the same exact reason, and I met with patient at bedside and this time patient reports that she is doing okay and she denies having any depression. Patient did not followup on any psychiatric outpatient referrals after her last admission to the medical floor. However, she reports that she does plan to do so after this admission. Patient does admit that she continues to be drinking heavily and has been drinking about 2 bottles of wine almost daily, most recently was 4 days ago. She denies having any drug use. Currently, she denies having any hallucinations and appears to be in fair control on the unit. She is alert and oriented to month, year, location, circumstances. She is not suicidal, she is not homicidal, she is coherent and clear and is not responding to internal stimuli. Thus far, she has been tolerating her medications well on the unit. PHYSICAL EXAMINATION VITAL SIGNS: Temperature 98, pulse 69, blood pressure 132/78, and respirations 18. LABORATORY DATA: Labs were reviewed by this provider. Relevant psychiatric medications only include Librium 25 mg q. 6 hours scheduled for alcohol withdrawal. IMPRESSION: 1. Alcohol dependency and acute alcohol withdrawal. 2. Rule out delirium tremens 3. History of depression, noncontributory at this time. RECOMMENDATIONS: 1. Medicines should continue to follow up patient and treat patient for her alcohol withdrawal taper Librium as tolerated. Patient appears to be in good control with no evidence of hallucinations or delusions that she demonstrated during her prior admission. 2. The patient is going to follow up for outpatient treatment and make referrals at this time. 3. Patient does not want psychiatric followup on the unit and she is not an acute danger to herself and others regarding her psychiatric symptoms as she denies any depression and she is not actively hallucinating. 4. Psychiatry will sign off at this time. Could re-consult as necessary per presentation changes. Please note the patient is interested in naltrexone treatment and medical team should explore this option thoroughly with her prior to discharge. Nancie Lyn MD
--- NOTE | 2017-02-02 05:11 | DS ---
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 The patient states she does drink out as a habit plus lot of anxiety going on at home. She is fully awake, alert and oriented. Her facial twitching has subsided. She is anxious to go home. PHYSICAL EXAMINATION: VITAL SIGNS: She is afebrile. Pulse 69, respirations 18 and blood pressure 132/78. LUNGS: Bilateral good air flow. No rhonchi or crackles. HEART: S1 and S2 audible. ABDOMEN: Soft and nontender. No rebound. No guarding. NEUROLOGIC: She is awake and alert. Able to communicate. Her urine drug screen is negative. ASSESSMENT: 1. Alcohol intoxication has improved. 2. Facial twitching has improved 3. Alcoholic hepatitis. 4. Anxiety disorder. PLAN: The patient is anxious to go home. She was given all the contact to get help as outpatient for addiction in rehab. She states she is serious and her has a drinking problem, so both of them they go together. She will follow with her . Katalina Ovalle MD
== END 2017-02-01 11:11 | disposition home or self-care (01) | DRG 897 ==
LOC: ED 10:50 → UNDOADMIN 12:36 → ERH 12:36 → 3RSO 15:09
PROVIDERS: ADMIT Internal Medicine; ATTEND Internal Medicine
DX: F10.231 Alcohol dependence with withdrawal delirium (principal); K70.10 Alcoholic hepatitis without ascites; F39 Unspecified mood [affective] disorder; F10.229 Alcohol dependence with intoxication, unspecified; F22 Delusional disorders; F41.9 Anxiety disorder, unspecified; K29.20 Alcoholic gastritis without bleeding; Z87.891 Personal history of nicotine dependence; F32.89 Other specified depressive episodes; R25.3 Fasciculation; Y90.0 Blood alcohol level of less than 20 mg/100 ml